=== PATIENT | female | born 1985 | race Caucasian/White ===

== ENCOUNTER 2016-08-01 16:41 | Emergency (ER) | payer MEDICAID ==
[~2016-08-01] VITALS: Ht 172.7 cm; Wt 85.6 kg
[~2016-08-01 16:41] MED LIST: AZIT-14 PO; CARI350T; CARI350T PO; DARU400T2 PO; ELVI1TAB3 PO; EMTR1TAB12 PO; IBUP800T; IBUP800T PO; OXYC10TA6 PO; PERCOCET; RITO100T PO; SULF1TAB24 PO; [UNRECOGNIZED DRUG - CODE] PO
[2016-08-01 16:53] VITALS: BP 106/70
[2016-08-01] MEDS ORDERED: DIPHENHYDRAMINE 25 MG CAPSULE ONE (17:54)
[2016-08-01] MEDS ORDERED: FAMOTIDINE 20 MG TABLET ONE (17:54)
[2016-08-01] MEDS ORDERED: DIPHENHYDRAMINE 25 MG CAPSULE PO ONE (18:00)
[2016-08-01] MEDS ORDERED: FAMOTIDINE 20 MG TABLET PO ONE (18:00)
[2016-08-01] MEDS ORDERED: TRAZ100T15 PO (18:07)
[2016-08-01] MEDS ORDERED: ZOLP10TA PO (18:07)
[2016-08-01 18:41] LABS: BLOOD UREA NITROGEN 17 mg/dL (7-18)
== END 2016-08-01 18:45 | disposition home or self-care (01) ==
LOC: ED 18:30
DX: L24.9 Irritant contact dermatitis, unspecified cause (principal); G43.909 Migraine, unspecified, not intractable, without status migrainosus; Z87.440 Personal history of urinary (tract) infections; Z85.42 Personal history of malignant neoplasm of other parts of uterus; Z88.1 Allergy status to other antibiotic agents; Z88.6 Allergy status to analgesic agent; Z88.8 Allergy status to other drugs, medicaments and biological substances
CPT/HCPCS: 36415; 80048; 82040; 85025; 99284; J7512; Q0163

== ENCOUNTER 2016-08-11 23:42 | Emergency (ER) | payer MEDICAID ==
[~2016-08-11] VITALS: Ht 172.7 cm; Wt 87.8 kg
[~2016-08-11 23:42] MED LIST changes: +TRAZ100T15 PO; +ZOLP10TA PO
[2016-08-12 00:35] LABS: HEMOGLOBIN 13.8 g/dL (11.7-16.4)
[2016-08-12] MEDS ORDERED: ONDANSETRON ODT 4 MG ONE (00:42)
[2016-08-12 00:46] LABS: ASPARTATE AMINO TRANSFERASE 15 U/L (15-37); BLOOD UREA NITROGEN 18 mg/dL (7-18)
[2016-08-12] MEDS ORDERED: OXYcodone IR 5MG TABLET PO STA (00:51)
[2016-08-12] MEDS ORDERED: OXYcodone IR 5MG TABLET ONE (00:52)
[2016-08-12] MEDS ORDERED: ONDANSETRON ODT 4 MG PO ONE (01:00)
[2016-08-12 01:38] VITALS: BP 101/65
[2016-08-12] MEDS ORDERED: AZITHROMYCIN 500 MG TABLET ONE (01:57)
[2016-08-12] MEDS ORDERED: CEFTRIAXONE 250 MG ONE (01:57)
[2016-08-12] MEDS ORDERED: CEFTRIAXONE 250 MG IM ONE (02:00)
[2016-08-12] MEDS ORDERED: AZITHROMYCIN 500 MG TABLET PO ONE (02:00)
== END 2016-08-12 02:20 | disposition home or self-care (01) ==
LOC: ED 23:59
DX: N89.8 Other specified noninflammatory disorders of vagina (principal); R10.2 Pelvic and perineal pain; Z90.710 Acquired absence of both cervix and uterus; Z88.8 Allergy status to other drugs, medicaments and biological substances; Z88.6 Allergy status to analgesic agent
CPT/HCPCS: 36415; 80053; 81003; 83690; 85025; 87210; 87491; 87591; 87808; 96372; 99284; J0696; Q0162

== ENCOUNTER 2016-09-10 21:01 | Emergency (ER) | payer MEDICAID ==
[~2016-09-10] VITALS: Ht 172.7 cm; Wt 84.5 kg
[~2016-09-10 21:01] MED LIST changes: -AZIT-14 PO; +AZIT250T89 PO
[2016-09-10 21:02] VITALS: BP 110/66
== END 2016-09-10 22:43 | disposition home or self-care (01) ==
LOC: ED 22:37
DX: M54.41 Lumbago with sciatica, right side (principal); M54.16 Radiculopathy, lumbar region; S39.012A Strain of muscle, fascia and tendon of lower back, initial encounter; E66.9 Obesity, unspecified; M19.90 Unspecified osteoarthritis, unspecified site; Z85.42 Personal history of malignant neoplasm of other parts of uterus; X58.XXXA Exposure to other specified factors, initial encounter; Y93.89 Activity, other specified; Y92.89 Other specified places as the place of occurrence of the external cause; Y99.8 Other external cause status; Z90.49 Acquired absence of other specified parts of digestive tract; Z90.710 Acquired absence of both cervix and uterus
CPT/HCPCS: 99283; J7512

== ENCOUNTER 2016-09-30 22:17 | Emergency (ER) | payer MEDICAID ==
[~2016-09-30] VITALS: Ht 172.7 cm; Wt 81.9 kg
[2016-09-30] MEDS ORDERED: LORazepam 1MG TABLET PO ONE (23:30)
[2016-09-30] MEDS ORDERED: SODIUM CHLORIDE FLUSH 10ML SYR IVF ONE (23:30)
[2016-09-30] MEDS ORDERED: SODIUM CHLORIDE 0.9% 1,000ML IVBOLUS ONE (23:30)
[2016-09-30] MEDS ORDERED: LORazepam 2 MG/ML, 1ML ONE (23:49)
[2016-10-01] MEDS ORDERED: LORazepam 2 MG/ML, 1ML IM ONE
[2016-10-01 00:12] LABS: ASPARTATE AMINO TRANSFERASE 18 U/L (15-37); BLOOD UREA NITROGEN 15 mg/dL (7-18)
[2016-10-01] MEDS ORDERED: OMNIPAQUE 350 MG/ML, 100ML BOTTLE ONE (00:46)
[2016-10-01 02:06] VITALS: BP 114/71
== END 2016-10-01 02:10 | disposition home or self-care (01) ==
LOC: ED 23:59
DX: R10.33 Periumbilical pain (principal); G89.29 Other chronic pain; Z90.49 Acquired absence of other specified parts of digestive tract; Z90.710 Acquired absence of both cervix and uterus; F17.200 Nicotine dependence, unspecified, uncomplicated
CPT/HCPCS: 36415; 74177; 80053; 85025; 96360; 96361; 96372; 99285; J2060; J7030; Q9967

== ENCOUNTER 2016-12-10 17:35 | Inpatient (IN) | payer BC, MEDICAID, OTHER ==
[~2016-12-10] VITALS: Ht 172.7 cm; Wt 76.3 kg
[2016-12-10] MEDS ORDERED: SODIUM CHLORIDE 0.9% 1,000ML IVBOLUS ONE ×2 (18:00→19:30)
[2016-12-10] MEDS ORDERED: ONDANSETRON 2MG/ML, 2ML IVPush ONE (18:00)
[2016-12-10] MEDS ORDERED: SODIUM CHLORIDE FLUSH 10ML SYR IVF ONE (18:00)
[2016-12-10] MEDS ORDERED: IBUPROFEN 200 MG TABLET PO ONE (18:00)
[2016-12-10] MEDS ORDERED: ACETAMINOPHEN 650 MG SUPP PR ONE (18:00)
[2016-12-10 18:20] LABS: HEMATOCRIT 38.8 % (34.6-47.8); WHITE BLOOD COUNT 4.7 x10^3/uL (3.4-10)
[2016-12-10 18:29] LABS: ASPARTATE AMINO TRANSFERASE 13 U/L (15-37); BLOOD UREA NITROGEN 10 mg/dL (7-18)
[2016-12-10] MEDS ORDERED: CEFTRIAXONE PMX 2GM/50ML 50 ML IV STA (18:58)
[2016-12-10] MEDS ORDERED: MORPHINE SULFATE 4 MG/ML, 1ML ONE ×3 (18:59→21:23)
[2016-12-10] MEDS ORDERED: ACETAMINOPHEN 500 MG TABLET ONE (19:00)
[2016-12-10] MEDS ORDERED: ONDANSETRON 2MG/ML, 2ML ONE (19:00)
[2016-12-10] MEDS ORDERED: LORazepam 2 MG/ML, 1ML ONE (19:00)
[2016-12-10] MEDS ORDERED: IBUPROFEN 200 MG TABLET ONE (19:00)
[2016-12-10] MEDS ORDERED: LORazepam 2 MG/ML, 1ML IVPush ONE (19:00)
[2016-12-10] MEDS ORDERED: SULFAMETH./TRIMETHOPRIM DS 800MG/160MG TABLET PO ONE (19:00)
[2016-12-10] MEDS: MORPHINE SULFATE 4 MG/ML, 1ML IVPush PRN ×3 (19:06→21:25)
[2016-12-10] MEDS ORDERED: POTASSIUM CHLORIDE 10% 20 MEQ/15 ML UDC ONE (19:20)
[2016-12-10] MEDS ORDERED: CEFTRIAXONE PMX 2GM/50ML 50 ML ONE (19:21)
[2016-12-10] MEDS ORDERED: SULFAMETH./TRIMETHOPRIM DS 800MG/160MG TABLET ONE (19:21)
[2016-12-10] MEDS ORDERED: POTASSIUM CHLORIDE 20 MEQ TAB.ER.PRT PO ONE (19:30)
[2016-12-10] MEDS ORDERED: NICOTINE GUM 4 MG BC PRN (20:30)
[2016-12-10] MEDS ORDERED: morphine SULFATE 10 MG/ML, 1ML IVPush PRN (20:30)
[2016-12-10] MEDS ORDERED: LORazepam 1MG TABLET PO PRN (20:30)
[2016-12-10] MEDS ORDERED: ONDANSETRON 2MG/ML, 2ML IVPush PRN (20:30)
[2016-12-10] MEDS ORDERED: ENALAPRILAT 1.25 MG/ML, 2ML IVPush PRN (20:30)
[2016-12-10] MEDS: SODIUM CHLORIDE 0.9% 1,000 ML IV SCH (21:25)
[2016-12-11] MEDS: SODIUM CHLORIDE 0.9% 1,000 ML IV SCH ×4 (00:18→16:50)
[2016-12-11] MEDS: FLUCONAZOLE 200 MG/100 ML 100 ML IV SCH ×2 (00:19→23:47)
[2016-12-11] MEDS: ENOXAPARIN 40 MG/0.4 ML SQ SCH ×2 (00:19→23:48)
[2016-12-11 01:27] VITALS: BP 83/48
[2016-12-11] MEDS ORDERED: SODIUM CHLORIDE 0.9% 1,000ML IVBOLUS ONE ×2 (02:00→05:00)
[2016-12-11] MEDS: ZOLPIDEM 10MG TABLET PO SCH ×2 (02:30→23:58)
[2016-12-11] MEDS: TRAZODONE 50MG TABLET PO SCH ×2 (02:30→23:59)
[2016-12-11 04:15] VITALS: BP 87/48
[2016-12-11 06:46] LABS: HEMATOCRIT 30.8 % (34.6-47.8); HEMOGLOBIN 10.6 g/dL (11.7-16.4); WHITE BLOOD COUNT 2.1 x10^3/uL (3.4-10)
[2016-12-11 06:53] VITALS: BP 125/46
[2016-12-11 06:59] LABS: BLOOD UREA NITROGEN 6 mg/dL (7-18)
[2016-12-11] MEDS ORDERED: POTASSIUM CHLORIDE 20 MEQ TAB.ER.PRT PO ONE (08:00)
[2016-12-11] MEDS: TEMPLATE NON-FORMULARY MED. (Elviteg/Cobi/Emtric/Tenofo Ala (Genvoya Tablet) 1 TAB) HOMEMEDPO SCH (09:00)
[2016-12-11 11:58] VITALS: BP 101/60
[2016-12-11] MEDS ORDERED: IBUPROFEN 200 MG TABLET PO PRN (12:30)
[2016-12-11] MEDS: CEFTRIAXONE PMX 1GM/50ML 50 ML IV SCH (12:35)
[2016-12-11] MEDS: DOXYCYCLINE 100 MG in DEXTROSE 5% 250 ML IV SCH (12:35)
[2016-12-11 13:17] VITALS: BP 96/51
[2016-12-11] MEDS ORDERED: CALCIUM CARBONATE 500 MG TAB.CHEW ONE (18:47)
[2016-12-11] MEDS ORDERED: CALCIUM CARBONATE 500 MG TAB.CHEW PO PRN (19:00)
[2016-12-11 19:55] VITALS: BP 119/75
[2016-12-11] MEDS: OMEPRAZOLE 20 MG CAPSULE.DR PO SCH (23:47)
[2016-12-12 01:25] VITALS: BP 82/52
[2016-12-12] MEDS: DOXYCYCLINE 100 MG in DEXTROSE 5% 250 ML IV SCH ×2 (01:27→12:15)
[2016-12-12] MEDS: SODIUM CHLORIDE 0.9% 1,000 ML IV SCH ×2 (01:33→12:15)
[2016-12-12 07:00] VITALS: BP 110/73
[2016-12-12] MEDS: OMEPRAZOLE 20 MG CAPSULE.DR PO SCH (08:38)
[2016-12-12] MEDS: TEMPLATE NON-FORMULARY MED. (Elviteg/Cobi/Emtric/Tenofo Ala (Genvoya Tablet) 1 TAB) HOMEMEDPO SCH (09:00)
[2016-12-12] MEDS: CEFTRIAXONE PMX 1GM/50ML 50 ML IV SCH (11:34)
[2016-12-12 14:10] VITALS: BP 119/77
[2016-12-12] MEDS ORDERED: CEFD300C37 PO (16:44)
[2016-12-12] MEDS ORDERED: DOXY100T PO (16:44)
[2016-12-12] MEDS ORDERED: NYST5000 PO (18:07)
[2016-12-13 00:06] LABS: % CD 3 POS LYMPHS 59.5 % (57.5-86.2); % CD 8 POS LYMPHS 54.2 % (12.0-35.5); % CD3+/CD25+ LYMPHS 4.7 % (4.9-25.9); % CD8+/CD38+ LYMPHS 45.1 % (0.0-17.7); % CD8+HLA-DR+ LYMPH 7.6 % (0.0-4.9); ABS CD3+/CD25+ LYMPHS 19 /uL (79-535); ABS CD8+/CD38+ LYMPHS 180 /uL (0-381); ABS CD8+HLA-DR+ LYMPH 30 /uL (0-117); ABSOLUTE CD 4 HELPER 17 /uL (359-1519); HEMATOCRIT 32.5 % (34.0-46.6); HEMOGLOBIN 10.5 g/dL (11.1-15.9); IMMATURE GRANULOCYTES 1 % (.); MCHC 32.3 g/dL (31.5-35.7); MCV 93 fL (79-97); MONOCYTES 9 % (.); NEUTROPHILS 63 % (.); NEUTROPHILS (ABSOLUTE) 1.1 x10E3/uL (1.4-7.0); PLATELETS 119 x10E3/uL (150-379); RDW 13.8 % (12.3-15.4); WBC 1.7 x10E3/uL (3.4-10.8)
== END 2016-12-12 18:45 | disposition home or self-care (01) | DRG 975 ==
LOC: ED 18:52 → EDIP 18:58 → 4NOR 23:28
DX: A41.9 Sepsis, unspecified organism (principal); B20 Human immunodeficiency virus [HIV] disease; N39.0 Urinary tract infection, site not specified; J15.9 Unspecified bacterial pneumonia; B59 Pneumocystosis; B37.0 Candidal stomatitis; R65.20 Severe sepsis without septic shock; R73.9 Hyperglycemia, unspecified; E66.9 Obesity, unspecified; K57.90 Diverticulosis of intestine, part unspecified, without perforation or abscess without bleeding; M54.16 Radiculopathy, lumbar region; R56.9 Unspecified convulsions; R55 Syncope and collapse; Z20.828 Contact with and (suspected) exposure to other viral communicable diseases; E87.6 Hypokalemia; Z76.5 Malingerer [conscious simulation]; Z83.3 Family history of diabetes mellitus; Z85.41 Personal history of malignant neoplasm of cervix uteri; Z85.42 Personal history of malignant neoplasm of other parts of uterus; Z86.711 Personal history of pulmonary embolism; Z91.19 Patient's noncompliance with other medical treatment and regimen; Z90.710 Acquired absence of both cervix and uterus; Z88.6 Allergy status to analgesic agent; Z88.1 Allergy status to other antibiotic agents; Z88.5 Allergy status to narcotic agent; Z68.25 Body mass index [BMI] 25.0-25.9, adult
CPT/HCPCS: 36415; 71020; 80048; 80053; 81001; 82550; 83605; 83735; 84100; 85025; 86356; 86359; 86360; 87040; 87086; 87281; 96374; 96375; J0696; J1650; J2405; J7060; J1450; J2060; J2270; J7030

== ENCOUNTER 2017-01-16 21:09 | Emergency (ER) | payer BC, OTHER ==
[~2017-01-16] VITALS: Ht 172.7 cm; Wt 76.4 kg
[~2017-01-16 21:09] MED LIST changes: +CEFD300C37 PO; +DOXY100T PO; -EMTR1TAB12 PO; +EMTR1TAB8 PO; +IBUP-1223; +IBUP-1223 PO; -IBUP800T; -IBUP800T PO; +NYST5000 PO
[2017-01-16 21:11] VITALS: BP 106/70
== END 2017-01-16 22:23 | disposition home or self-care (01) ==
LOC: ED 21:50
DX: R10.2 Pelvic and perineal pain (principal); R10.30 Lower abdominal pain, unspecified; F17.200 Nicotine dependence, unspecified, uncomplicated; Z86.711 Personal history of pulmonary embolism; Z98.890 Other specified postprocedural states; Z88.6 Allergy status to analgesic agent; Z88.8 Allergy status to other drugs, medicaments and biological substances; Z91.018 Allergy to other foods
CPT/HCPCS: 99281

== ENCOUNTER 2017-05-31 18:43 | Emergency (ER) | payer BC ==
[~2017-05-31] VITALS: Ht 172.7 cm; Wt 82.4 kg
[~2017-05-31 18:43] MED LIST changes: +SULF1TAB23 PO
[2017-05-31] MEDS ORDERED: MORPHINE SULFATE 4 MG/ML, 1ML IVPush PRN (20:00)
[2017-05-31] MEDS ORDERED: SODIUM CHLORIDE FLUSH 10ML SYR IVF ONE (20:00)
[2017-05-31] MEDS ORDERED: METHOCARBAMOL 1,000 MG in DEXTROSE 5% 100 ML IV ONE (20:00)
[2017-05-31 20:02] LABS: MEAN CORPUSCULAR HEMOGLOBIN 32.2 pg (27.0-34.8); MEAN CORPUSCULAR VOLUME 94.7 fL (80-100); MEAN PLATELET VOLUME 8.5 fL (7.4-10.4); PLATELET COUNT 199 x10^3/uL (130-400); RED BLOOD COUNT 4.07 x10^6/uL (3.82-5.3); RED CELL DISTRIBUTION WIDTH 12.1 % (9.6-15.2)
[2017-05-31 20:11] LABS: ALANINE AMINOTRANSFERASE 22 U/L (12-78); ALBUMIN 3.6 g/dL (3.4-5.0); ANION GAP 7 mmol/L (5-15); CALCIUM 7.9 mg/dL (8.5-10.1); CHLORIDE 111 mmol/L (98-107); CREATININE 0.86 mg/dL (0.55-1.02)
[2017-05-31 20:14] LABS: ALKALINE PHOSPHATASE 47 U/L (45-117); BILIRUBIN,TOTAL 0.7 mg/dL (0.2-1.0); TOTAL PROTEIN 7.7 g/dL (6.4-8.2)
[2017-05-31 20:20] LABS: BASOPHILS # (AUTO) 0.01 x10^3/uL (0-0.1); BASOPHILS % (AUTO) 0 % (0-1); EOSINOPHILS # (AUTO) 0.13 x10^3/uL (0-0.4); EOSINOPHILS % (AUTO) 5 % (1-7); LYMPHOCYTES # (AUTO) 0.65 x10^3/uL (1-3.4); LYMPHOCYTES % (AUTO) 26 % (22-44); MD SCAN; MONOCYTES # (AUTO) 0.16 x10^3/uL (0.2-0.8); MONOCYTES % (AUTO) 6 % (2-9); NEUTROPHILS # (AUTO) 1.55 x10^3/uL (1.8-6.8); NEUTROPHILS % (AUTO) 62 % (42-75)
[2017-05-31 20:21] LABS: HCT (SEDRATE) 38.6 % (34.6-47.8)
[2017-05-31] MEDS ORDERED: MORPHINE SULFATE 4 MG/ML, 1ML ONE (20:26)
[2017-05-31 21:18] LABS: CULTURE INDICATED? YES; MICROSCOPIC INDICATED
[2017-05-31 21:45] VITALS: BP 117/63
== END 2017-05-31 22:10 | disposition home or self-care (01) ==
LOC: ED 19:28
DX: M54.41 Lumbago with sciatica, right side (principal); N30.90 Cystitis, unspecified without hematuria; R20.2 Paresthesia of skin; Z86.711 Personal history of pulmonary embolism; Z90.49 Acquired absence of other specified parts of digestive tract
CPT/HCPCS: 36415; 72131; 80053; 81001; 84703; 85025; 85651; 87086; 96365; 96375; 99285; J2800; 87077

== ENCOUNTER 2017-07-01 23:54 | Emergency (ER) | payer BC ==
[~2017-07-01] VITALS: Ht 172.7 cm; Wt 80.7 kg
[2017-07-01 23:59] VITALS: BP 110/73
[2017-07-02] MEDS ORDERED: FAMOTIDINE 20 MG/2 ML IVPush ONE (00:30)
[2017-07-02] MEDS ORDERED: SODIUM CHLORIDE FLUSH 10ML SYR IVF ONE (00:30)
[2017-07-02] MEDS ORDERED: SODIUM CHLORIDE 0.9% 1,000ML IVBOLUS ONE (00:30)
[2017-07-02] MEDS ORDERED: PROCHLORPERAZINE 5 MG/ML, 2ML IVPush ONE (00:30)
[2017-07-02] MEDS ORDERED: DIPHENHYDRAMINE 50 MG/ML, 1ML IVPush ONE (00:30)
[2017-07-02 00:45] LABS: BASOPHILS # (AUTO) 0.01 x10^3/uL (0-0.1); BASOPHILS % (AUTO) 0 % (0-1); EOSINOPHILS # (AUTO) 0.09 x10^3/uL (0-0.4); EOSINOPHILS % (AUTO) 3 % (1-7); LYMPHOCYTES # (AUTO) 0.39 x10^3/uL (1-3.4); LYMPHOCYTES % (AUTO) 13 % (22-44); MD NO; MEAN CORPUSCULAR HEMOGLOBIN 31.7 pg (27.0-34.8); MEAN CORPUSCULAR HGB CONC 34.4 g/dL (32.4-35.8); MEAN CORPUSCULAR VOLUME 92.1 fL (80-100); MEAN PLATELET VOLUME 8.8 fL (7.4-10.4); MONOCYTES # (AUTO) 0.17 x10^3/uL (0.2-0.8); MONOCYTES % (AUTO) 6 % (2-9); NEUTROPHILS # (AUTO) 2.32 x10^3/uL (1.8-6.8); NEUTROPHILS % (AUTO) 78 % (42-75); PLATELET COUNT 142 x10^3/uL (130-400); RED BLOOD COUNT 4.19 x10^6/uL (3.82-5.3); RED CELL DISTRIBUTION WIDTH 11.3 % (9.6-15.2)
[2017-07-02] MEDS ORDERED: FAMOTIDINE 20 MG/2 ML ONE (00:51)
[2017-07-02] MEDS ORDERED: PROCHLORPERAZINE 5 MG/ML, 2ML ONE (00:51)
[2017-07-02] MEDS ORDERED: DIPHENHYDRAMINE 50 MG/ML, 1ML ONE (00:51)
[2017-07-02] MEDS ORDERED: LORazepam 1MG TABLET PO ONE (01:30)
== END 2017-07-02 02:17 | disposition other institution (70) ==
LOC: ED 23:59
DX: L50.9 Urticaria, unspecified (principal); R51 Headache; G89.29 Other chronic pain; N83.209 Unspecified ovarian cyst, unspecified side
CPT/HCPCS: 36415; 85025; 99285

== ENCOUNTER 2017-09-22 18:17 | Emergency (ER) | payer BC ==
[~2017-09-22] VITALS: Ht 172.7 cm; Wt 76.7 kg
[2017-09-22] MEDS ORDERED: SODIUM CHLORIDE 0.9% 1,000ML IVBOLUS ONE ×2 (19:00→22:30)
[2017-09-22] MEDS ORDERED: ONDANSETRON ODT 4 MG PO ONE (19:00)
[2017-09-22] MEDS ORDERED: ANTIBIOTIC (19:12)
[2017-09-22] MEDS ORDERED: ONDANSETRON ODT 4 MG ONE (19:23)
[2017-09-22] MEDS ORDERED: MORPHINE SULFATE 4 MG/ML, 1ML ONE ×3 (19:23→22:03)
[2017-09-22] MEDS: MORPHINE SULFATE 4 MG/ML, 1ML IVPush PRN ×2 (19:26→21:04)
[2017-09-22 19:41] LABS: BASOPHILS # (AUTO) 0.04 x10^3/uL (0-0.1); BASOPHILS % (AUTO) 1 % (0-1); EOSINOPHILS # (AUTO) 0.22 x10^3/uL (0-0.4); EOSINOPHILS % (AUTO) 5 % (1-7); LYMPHOCYTES # (AUTO) 0.69 x10^3/uL (1-3.4); LYMPHOCYTES % (AUTO) 16 % (22-44); MD NO; MEAN CORPUSCULAR HEMOGLOBIN 30.9 pg (27.0-34.8); MEAN CORPUSCULAR VOLUME 90.9 fL (80-100); MEAN PLATELET VOLUME 8.7 fL (7.4-10.4); MONOCYTES # (AUTO) 0.22 x10^3/uL (0.2-0.8); MONOCYTES % (AUTO) 5 % (2-9); NEUTROPHILS # (AUTO) 3.02 x10^3/uL (1.8-6.8); NEUTROPHILS % (AUTO) 72 % (42-75); PLATELET COUNT 226 x10^3/uL (130-400); RED BLOOD COUNT 4.36 x10^6/uL (3.82-5.3); RED CELL DISTRIBUTION WIDTH 14.9 % (9.6-15.2)
[2017-09-22 19:44] LABS: INTERNATIONAL NORMALIZED RATIO 1.01 (0.93-1.1); PROTHROMBIN TIME 10.5 Seconds (9.6-11.5)
[2017-09-22 19:54] LABS: ALANINE AMINOTRANSFERASE 20 U/L (12-78); ANION GAP 10 mmol/L (5-15); CALCIUM 9.6 mg/dL (8.5-10.1); CHLORIDE 110 mmol/L (98-107); CREATININE 0.93 mg/dL (0.55-1.02)
[2017-09-22 19:57] LABS: ALKALINE PHOSPHATASE 47 U/L (45-117); BILIRUBIN,TOTAL 0.6 mg/dL (0.2-1.0)
[2017-09-22] MEDS ORDERED: MIDAZOLAM 1 MG/ML, 2ML ONE ×2 (19:59→21:29)
[2017-09-22] MEDS ORDERED: MIDAZOLAM 1 MG/ML, 2ML IVPush ONE ×3 (20:00→21:30)
[2017-09-22] MEDS: SODIUM CHLORIDE 0.9% 1,000 ML IV SCH ×2 (20:41→20:43)
[2017-09-22 20:48] LABS: MICROSCOPIC AUTO
[2017-09-22 20:53] LABS: CULTURE INDICATED? YES
[2017-09-22 20:57] LABS: AMPHETAMINE SCREEN, URINE Negative (Negative); BARBITURATE SCREEN, URINE Negative (Negative); BENZODIAZEPINE SCREEN, URINE Positive (Negative); CANNABINOID SCREEN, URINE Negative (Negative); COCAINE SCREEN, URINE Negative (Negative); METHADONE SCREEN, URINE Negative (Negative); OPIATE SCREEN, URINE Positive (Negative)
[2017-09-22] MEDS ORDERED: MORPHINE SULFATE 4 MG/ML, 1ML IVPush ONE (22:00)
[2017-09-22 22:15] LABS: GLUCOSE, CSF 46 mg/dL (40-80); TOTAL PROTEIN,CSF 32 mg/dL (15-45)
[2017-09-22 22:29] VITALS: BP 97/52
== END 2017-09-22 22:32 | disposition home or self-care (01) ==
LOC: ED 19:17
DX: B34.9 Viral infection, unspecified (principal)
CPT/HCPCS: 36415; 62270; 70450; 71045; 80053; 80307; 81001; 82945; 83605; 84145; 84157; 85025; 85610; 87040; 87070; 87077; 87086; 87205; 87252; 87536; 87899; 89051; 96361; 96374; 96375; 96376; 99285; J2250; J7030; Q0162; 87186

== ENCOUNTER 2017-09-23 18:16 | Emergency (ER) | payer BC ==
[~2017-09-23] VITALS: Ht 172.7 cm; Wt 78.7 kg
[~2017-09-23 18:16] MED LIST changes: +ANTIBIOTIC
[2017-09-23] MEDS ORDERED: MORPHINE SULFATE 4 MG/ML, 1ML IVPush PRN (20:00)
[2017-09-23] MEDS ORDERED: LORazepam 2 MG/ML, 1ML IVPush ONE (20:00)
[2017-09-23] MEDS ORDERED: METOCLOPRAMIDE 5 MG/ML, 2ML IVPush ONE (20:00)
[2017-09-23] MEDS ORDERED: SODIUM CHLORIDE 0.9% 1,000ML IVBOLUS ONE (20:00)
[2017-09-23] MEDS ORDERED: SODIUM CHLORIDE FLUSH 10ML SYR IVF ONE (20:00)
[2017-09-23] MEDS ORDERED: MORPHINE SULFATE 4 MG/ML, 1ML ONE (20:05)
[2017-09-23] MEDS ORDERED: METOCLOPRAMIDE 5 MG/ML, 2ML ONE (20:05)
[2017-09-23] MEDS ORDERED: LORazepam 2 MG/ML, 1ML ONE (20:06)
[2017-09-23 22:24] VITALS: BP 112/64
== END 2017-09-23 22:27 | disposition home or self-care (01) ==
LOC: ED 22:03
DX: G97.1 Other reaction to spinal and lumbar puncture (principal); Y84.4 Aspiration of fluid as the cause of abnormal reaction of the patient, or of later complication, without mention of misadventure at the time of the procedure; Y92.89 Other specified places as the place of occurrence of the external cause
CPT/HCPCS: 96374; 96375; 99284; J2060; J2765; J7030

== ENCOUNTER 2017-10-04 19:15 | Emergency (ER) | payer BC ==
[~2017-10-04] VITALS: Ht 172.7 cm; Wt 76.8 kg
[2017-10-04 19:17] VITALS: BP 106/71
[2017-10-04] MEDS ORDERED: OMNIPAQUE 350 MG/ML, 100ML BOTTLE ONE (19:39)
[2017-10-04] MEDS ORDERED: MORPHINE SULFATE 4 MG/ML, 1ML ONE ×2 (19:56→21:37)
[2017-10-04] MEDS ORDERED: SODIUM CHLORIDE FLUSH 10ML SYR IVF ONE (20:00)
[2017-10-04] MEDS: MORPHINE SULFATE 4 MG/ML, 1ML IVPush PRN ×2 (20:04→21:40)
[2017-10-04] MEDS ORDERED: ZOLP10TA PO (20:09)
[2017-10-04 20:16] LABS: MEAN CORPUSCULAR HEMOGLOBIN 30.9 pg (27.0-34.8); MEAN CORPUSCULAR HGB CONC 33.9 g/dL (32.4-35.8); MEAN CORPUSCULAR VOLUME 91.1 fL (80-100); MEAN PLATELET VOLUME 8.1 fL (7.4-10.4); PLATELET COUNT 234 x10^3/uL (130-400); RED BLOOD COUNT 4.09 x10^6/uL (3.82-5.3); RED CELL DISTRIBUTION WIDTH 14.7 % (9.6-15.2)
[2017-10-04 20:25] LABS: ALANINE AMINOTRANSFERASE 27 U/L (12-78); ALBUMIN 3.6 g/dL (3.4-5.0); ANION GAP 7 mmol/L (5-15); CALCIUM 8.6 mg/dL (8.5-10.1); CHLORIDE 106 mmol/L (98-107); CREATININE 0.79 mg/dL (0.55-1.02)
[2017-10-04 20:27] LABS: ALKALINE PHOSPHATASE 53 U/L (45-117); BILIRUBIN,TOTAL 0.4 mg/dL (0.2-1.0); TOTAL PROTEIN 7.7 g/dL (6.4-8.2)
[2017-10-04 20:37] LABS: BASOPHILS # (AUTO) 0.01 x10^3/uL (0-0.1); BASOPHILS % (AUTO) 0 % (0-1); EOSINOPHILS # (AUTO) 0.16 x10^3/uL (0-0.4); EOSINOPHILS % (AUTO) 6 % (1-7); LYMPHOCYTES # (AUTO) 0.45 x10^3/uL (1-3.4); LYMPHOCYTES % (AUTO) 16 % (22-44); MD SCAN; MONOCYTES # (AUTO) 0.17 x10^3/uL (0.2-0.8); MONOCYTES % (AUTO) 6 % (2-9); NEUTROPHILS # (AUTO) 2.09 x10^3/uL (1.8-6.8); NEUTROPHILS % (AUTO) 73 % (42-75)
[2017-10-04 21:13] LABS: MICROSCOPIC NOT IND
[2017-10-04 21:15] LABS: CULTURE INDICATED? NO
== END 2017-10-04 22:04 | disposition home or self-care (01) ==
LOC: ED 19:46
DX: G89.18 Other acute postprocedural pain (principal); R10.30 Lower abdominal pain, unspecified; R93.8 Abnormal findings on diagnostic imaging of other specified body structures; M19.90 Unspecified osteoarthritis, unspecified site; Z86.711 Personal history of pulmonary embolism; Z85.42 Personal history of malignant neoplasm of other parts of uterus; Z90.49 Acquired absence of other specified parts of digestive tract; Z90.710 Acquired absence of both cervix and uterus; Z87.891 Personal history of nicotine dependence
CPT/HCPCS: 36415; 74177; 80053; 81003; 85025; 96374; 96376; 99285; Q9967

== ENCOUNTER 2017-11-15 20:08 | Emergency (ER) | payer BC ==
[~2017-11-15] VITALS: Ht 172.7 cm; Wt 76.1 kg
[2017-11-15 20:09] VITALS: BP 102/65
[2017-11-15 20:59] LABS: MEAN CORPUSCULAR HEMOGLOBIN 31.6 pg (27.0-34.8); MEAN CORPUSCULAR HGB CONC 34.4 g/dL (32.4-35.8); MEAN CORPUSCULAR VOLUME 91.7 fL (80-100); MEAN PLATELET VOLUME 8.5 fL (7.4-10.4); PLATELET COUNT 223 x10^3/uL (130-400); RED BLOOD COUNT 3.95 x10^6/uL (3.82-5.3); RED CELL DISTRIBUTION WIDTH 14.2 % (9.6-15.2)
[2017-11-15] MEDS ORDERED: SODIUM CHLORIDE FLUSH 10ML SYR IVF ONE (21:00)
[2017-11-15 21:11] LABS: ALANINE AMINOTRANSFERASE 19 U/L (12-78); ALBUMIN 3.8 g/dL (3.4-5.0); ANION GAP 7 mmol/L (5-15); CALCIUM 8.4 mg/dL (8.5-10.1); CHLORIDE 113 mmol/L (98-107); CREATININE 0.72 mg/dL (0.55-1.02)
[2017-11-15 21:14] LABS: ALKALINE PHOSPHATASE 46 U/L (45-117); BILIRUBIN,TOTAL 0.7 mg/dL (0.2-1.0); TOTAL PROTEIN 7.5 g/dL (6.4-8.2)
[2017-11-15 21:16] LABS: BASOPHILS # (AUTO) 0.01 x10^3/uL (0-0.1); BASOPHILS % (AUTO) 1 % (0-1); EOSINOPHILS % (AUTO) 4 % (1-7); LYMPHOCYTES # (AUTO) 0.76 x10^3/uL (1-3.4); LYMPHOCYTES % (AUTO) 32 % (22-44); MD MORPH REVIEW ONLY; MONOCYTES # (AUTO) 0.22 x10^3/uL (0.2-0.8); MONOCYTES % (AUTO) 9 % (2-9); NEUTROPHILS # (AUTO) 1.32 x10^3/uL (1.8-6.8); NEUTROPHILS % (AUTO) 55 % (42-75)
[2017-11-15 21:17] LABS: ANISOCYTOSIS 1+; OVALOCYTES 1+
[2017-11-15 21:20] LABS: <PLATELET ESTIMATE> ADEQUATE
[2017-11-15 21:21] LABS: <PLT MORPHOLOGY> NORMAL PLT MORPH
== END 2017-11-15 22:04 | disposition home or self-care (01) ==
LOC: ED 20:26
DX: Z48.01 Encounter for change or removal of surgical wound dressing (principal); R68.83 Chills (without fever); R11.0 Nausea; B20 Human immunodeficiency virus [HIV] disease; G43.909 Migraine, unspecified, not intractable, without status migrainosus; M19.90 Unspecified osteoarthritis, unspecified site; E66.9 Obesity, unspecified; N80.9 Endometriosis, unspecified; Z85.42 Personal history of malignant neoplasm of other parts of uterus; Z86.711 Personal history of pulmonary embolism
CPT/HCPCS: 36415; 80053; 83605; 85025; 87040; 99284

== ENCOUNTER 2017-12-24 19:51 | Emergency (ER) | payer BC ==
[~2017-12-24] VITALS: Ht 172.7 cm; Wt 78.0 kg
[~2017-12-24 19:51] MED LIST changes: +TRAZ-137 PO; -TRAZ100T15 PO
[2017-12-24 20:12] VITALS: BP 110/74
[2017-12-24] MEDS ORDERED: FAMOTIDINE 20 MG TABLET ONE (20:52)
[2017-12-24] MEDS ORDERED: DIPHENHYDRAMINE 25 MG CAPSULE ONE (20:52)
[2017-12-24] MEDS ORDERED: HYDROcodone/APAP 5/325 TABLET ONE (20:52)
[2017-12-24] MEDS ORDERED: FAMOTIDINE 20 MG TABLET PO ONE (21:00)
[2017-12-24] MEDS ORDERED: HYDROcodone/APAP 5/325 TABLET PO ONE (21:00)
[2017-12-24] MEDS ORDERED: DIPHENHYDRAMINE 25 MG CAPSULE PO ONE (21:00)
[2017-12-24] MEDS ORDERED: OXYcodone 5 MG/5 ML ORAL.SOL UDC PO PRN (21:00)
[2017-12-24] MEDS ORDERED: OXYcodone 5 MG/5 ML ORAL.SOL UDC ONE (21:17)
== END 2017-12-24 22:03 | disposition home or self-care (01) ==
LOC: ED 21:31
DX: T63.301A Toxic effect of unspecified spider venom, accidental (unintentional), initial encounter (principal); G43.909 Migraine, unspecified, not intractable, without status migrainosus; F17.200 Nicotine dependence, unspecified, uncomplicated; Z88.8 Allergy status to other drugs, medicaments and biological substances; Z88.1 Allergy status to other antibiotic agents; Y92.9 Unspecified place or not applicable
CPT/HCPCS: 99284; Q0163

== ENCOUNTER 2018-01-18 00:11 | Emergency (ER) | payer BC ==
[~2018-01-18] VITALS: Ht 172.7 cm; Wt 78.0 kg
[2018-01-18] MEDS ORDERED: SODIUM CHLORIDE 0.9% 1,000ML IVBOLUS ONE (00:30)
[2018-01-18 00:43] LABS: BASOPHILS # (AUTO) 0.01 x10^3/uL (0-0.1); BASOPHILS % (AUTO) 0 % (0-1); EOSINOPHILS # (AUTO) 0.17 x10^3/uL (0-0.4); EOSINOPHILS % (AUTO) 6 % (1-7); LYMPHOCYTES # (AUTO) 0.61 x10^3/uL (1-3.4); LYMPHOCYTES % (AUTO) 23 % (22-44); MD NO; MEAN CORPUSCULAR HEMOGLOBIN 31.9 pg (27.0-34.8); MEAN CORPUSCULAR HGB CONC 35.2 g/dL (32.4-35.8); MEAN CORPUSCULAR VOLUME 90.6 fL (80-100); MEAN PLATELET VOLUME 8.7 fL (7.4-10.4); MONOCYTES # (AUTO) 0.19 x10^3/uL (0.2-0.8); MONOCYTES % (AUTO) 7 % (2-9); NEUTROPHILS # (AUTO) 1.68 x10^3/uL (1.8-6.8); NEUTROPHILS % (AUTO) 63 % (42-75); PLATELET COUNT 141 x10^3/uL (130-400); RED BLOOD COUNT 3.85 x10^6/uL (3.82-5.3); RED CELL DISTRIBUTION WIDTH 12.3 % (9.6-15.2)
[2018-01-18 00:52] LABS: ALANINE AMINOTRANSFERASE 20 U/L (12-78); ALBUMIN 3.5 g/dL (3.4-5.0); ANION GAP 6 mmol/L (5-15); CHLORIDE 110 mmol/L (98-107); CREATININE 0.77 mg/dL (0.55-1.02)
[2018-01-18] MEDS ORDERED: MORPHINE SULFATE 4 MG/ML, 1ML ONE ×2 (00:52→01:56)
[2018-01-18 00:57] LABS: ALKALINE PHOSPHATASE 50 U/L (45-117); BILIRUBIN,TOTAL 0.6 mg/dL (0.2-1.0); TOTAL PROTEIN 7.2 g/dL (6.4-8.2)
[2018-01-18 01:41] LABS: CULTURE INDICATED? YES; MICROSCOPIC INDICATED
[2018-01-18] MEDS ORDERED: OMNIPAQUE 350 MG/ML, 100ML BOTTLE ONE (01:48)
[2018-01-18] MEDS: MORPHINE SULFATE 4 MG/ML, 1ML IVPush PRN ×2 (01:51→02:12)
[2018-01-18 02:33] VITALS: BP 101/59
== END 2018-01-18 03:02 | disposition home or self-care (01) ==
LOC: ED 00:51
DX: R10.31 Right lower quadrant pain (principal); R10.11 Right upper quadrant pain; R11.0 Nausea; Z21 Asymptomatic human immunodeficiency virus [HIV] infection status; Z87.891 Personal history of nicotine dependence; Z90.49 Acquired absence of other specified parts of digestive tract; Z90.710 Acquired absence of both cervix and uterus
CPT/HCPCS: 36415; 74177; 80053; 81001; 83690; 84703; 85025; 87077; 87086; 96374; 99285; J7030; Q9967; 87186

== ENCOUNTER 2018-01-25 12:04 | Emergency (ER) | payer BC ==
[~2018-01-25] VITALS: Ht 172.7 cm; Wt 75.5 kg
[2018-01-25 13:00] LABS: MEAN CORPUSCULAR HEMOGLOBIN 31.7 pg (27.0-34.8); MEAN CORPUSCULAR HGB CONC 34.5 g/dL (32.4-35.8); MEAN CORPUSCULAR VOLUME 91.7 fL (80-100); MEAN PLATELET VOLUME 9.2 fL (7.4-10.4); PLATELET COUNT 147 x10^3/uL (130-400); RED BLOOD COUNT 4.28 x10^6/uL (3.82-5.3); RED CELL DISTRIBUTION WIDTH 12.3 % (9.6-15.2)
[2018-01-25] MEDS ORDERED: FLUCONAZOLE 100 MG TABLET PO ONE (13:00)
[2018-01-25 13:07] LABS: ALANINE AMINOTRANSFERASE 23 U/L (12-78); ALBUMIN 3.8 g/dL (3.4-5.0); ANION GAP 9 mmol/L (5-15); CALCIUM 8.5 mg/dL (8.5-10.1); CHLORIDE 112 mmol/L (98-107); CREATININE 0.71 mg/dL (0.55-1.02); PROTHROMBIN TIME 10.4 Seconds (9.6-11.5)
[2018-01-25 13:10] LABS: ALKALINE PHOSPHATASE 51 U/L (45-117); BILIRUBIN,TOTAL 0.9 mg/dL (0.2-1.0); TOTAL PROTEIN 7.9 g/dL (6.4-8.2)
[2018-01-25 13:10] LABS: MICROSCOPIC AUTO
[2018-01-25 13:11] LABS: CULTURE INDICATED? YES
[2018-01-25] MEDS ORDERED: FLUCONAZOLE 100 MG TABLET ONE (13:36)
[2018-01-25 14:07] LABS: BASOPHILS # (AUTO) 0.01 x10^3/uL (0-0.1); BASOPHILS % (AUTO) 0 % (0-1); EOSINOPHILS # (AUTO) 0.12 x10^3/uL (0-0.4); EOSINOPHILS % (AUTO) 5 % (1-7); LYMPHOCYTES # (AUTO) 0.33 x10^3/uL (1-3.4); LYMPHOCYTES % (AUTO) 12 % (22-44); MD SCAN; MONOCYTES # (AUTO) 0.15 x10^3/uL (0.2-0.8); MONOCYTES % (AUTO) 6 % (2-9); NEUTROPHILS # (AUTO) 2.05 x10^3/uL (1.8-6.8); NEUTROPHILS % (AUTO) 77 % (42-75)
[2018-01-25] MEDS ORDERED: LIDOCAINE-MPF 2%, 2ML ONE (14:10)
[2018-01-25] MEDS ORDERED: CEFTRIAXONE 1,000 MG ONE (14:10)
[2018-01-25 14:22] VITALS: BP 128/87
[2018-01-25] MEDS ORDERED: CEFTRIAXONE 1,000 MG IM ONE (14:30)
== END 2018-01-25 14:56 | disposition home or self-care (01) ==
LOC: ED 13:41
DX: N30.00 Acute cystitis without hematuria (principal); Z21 Asymptomatic human immunodeficiency virus [HIV] infection status
CPT/HCPCS: 36415; 80053; 81001; 83605; 85025; 85610; 85730; 87040; 87077; 87086; 87186; 96372; 99284; J0696

== ENCOUNTER 2018-05-12 16:25 | Emergency (ER) | payer BC ==
[~2018-05-12] VITALS: Ht 172.7 cm; Wt 76.5 kg
[2018-05-12 16:40] VITALS: BP 102/65
--- NOTE | 2018-05-12 17:04 | NUR ---
TO JOVON FROM LOBBY. MARITO.
[2018-05-12 17:31] LABS: MICROSCOPIC INDICATED
[2018-05-12 17:32] LABS: CULTURE INDICATED? YES
[2018-05-12] MEDS ORDERED: DIAZEPAM 5 MG TABLET ONE (17:32)
--- NOTE | 2018-05-12 17:59 | NUR ---
CENTRAL CONTACTED FOR FOAM PILLOW
[2018-05-12] MEDS ORDERED: DIAZEPAM 5 MG TABLET PO ONE (18:00)
[2018-05-12] MEDS ORDERED: HYDROmorphone 2 MG/ML, 1ML ONE (18:04)
--- NOTE | 2018-05-12 18:25 | NUR ---
PT GIVEN ORTHO PILLOW, ABLE TO AMB TO DC
[2018-05-12] MEDS ORDERED: HYDROmorphone 2 MG/ML, 1ML IM ONE (18:30)
== END 2018-05-12 18:28 | disposition home or self-care (01) ==
LOC: ED 18:15
DX: S32.2XXA Fracture of coccyx, initial encounter for closed fracture (principal); Z90.49 Acquired absence of other specified parts of digestive tract; Z90.710 Acquired absence of both cervix and uterus; Z21 Asymptomatic human immunodeficiency virus [HIV] infection status; Z88.6 Allergy status to analgesic agent; Z86.19 Personal history of other infectious and parasitic diseases; Z86.711 Personal history of pulmonary embolism; X58.XXXA Exposure to other specified factors, initial encounter; Y93.89 Activity, other specified; Y92.89 Other specified places as the place of occurrence of the external cause; Y99.8 Other external cause status
CPT/HCPCS: 72110; 72220; 81001; 87077; 87086; 87186; 96372; 99284; J1170

== ENCOUNTER 2018-06-09 18:44 | Emergency (ER) | payer BC ==
[~2018-06-09] VITALS: Ht 172.7 cm; Wt 75.4 kg
[2018-06-09 19:00] VITALS: BP 105/67
[2018-06-09] MEDS ORDERED: HYDROcodone/APAP 5/325 TABLET ONE (19:18)
[2018-06-09] MEDS ORDERED: OXYcodone IR 5MG TABLET ONE (19:23)
[2018-06-09] MEDS ORDERED: OXYcodone IR 5MG TABLET PO ONE (19:30)
[2018-06-09] MEDS ORDERED: HYDROcodone/APAP 5/325 TABLET PO ONE (19:30)
== END 2018-06-09 21:37 | disposition home or self-care (01) ==
LOC: ED 19:21
DX: M25.572 Pain in left ankle and joints of left foot (principal); Z90.49 Acquired absence of other specified parts of digestive tract; Z90.710 Acquired absence of both cervix and uterus; Z72.9 Problem related to lifestyle, unspecified; G43.909 Migraine, unspecified, not intractable, without status migrainosus; Z98.84 Bariatric surgery status
CPT/HCPCS: 99284

== ENCOUNTER 2018-07-28 22:32 | Emergency (ER) | payer BC ==
[~2018-07-28] VITALS: Ht 172.7 cm; Wt 79.6 kg
--- NOTE | 2018-07-28 22:49 | NUR ---
PT REPORTS A 4 DAY EVANS AND OTC MEDS NOT WORKING. per triage note
[2018-07-28] MEDS ORDERED: HYDROmorphone 1 MG/ML, 1ML AMP IM STA (23:11)
[2018-07-28] MEDS ORDERED: DIAZEPAM 5 MG TABLET ONE (23:17)
[2018-07-28] MEDS ORDERED: HYDROmorphone 1 MG/ML, 1ML AMP ONE (23:17)
[2018-07-28] MEDS ORDERED: DIAZEPAM 5 MG TABLET PO ONE (23:30)
[2018-07-29 00:08] VITALS: BP 99/72
--- NOTE | 2018-07-29 00:08 | NUR ---
given dc instruction pt understood
== END 2018-07-29 00:10 | disposition home or self-care (01) ==
LOC: ED 23:20
DX: G44.211 Episodic tension-type headache, intractable (principal); Z72.9 Problem related to lifestyle, unspecified
CPT/HCPCS: 96372; 99283; J1170

== ENCOUNTER 2018-07-29 18:34 | Emergency (ER) | payer BC ==
[~2018-07-29] VITALS: Ht 172.7 cm; Wt 77.6 kg
--- NOTE | 2018-07-29 18:58 | NUR ---
PT PRESENTS TO ED AFTER TAKING SHOWER AND FINDING BUMP BETWEEN BUTCRACK, PT WAS IN ED LAST NIGHT FOR BACK PAIN.
--- NOTE | 2018-07-29 19:13 | NUR ---
REPORT TO FABIAN LOFTON
[2018-07-29] MEDS ORDERED: DIAZEPAM 5 MG TABLET ONE (20:03)
[2018-07-29] MEDS ORDERED: HYDROmorphone 1 MG/ML, 1ML AMP ONE (20:04)
[2018-07-29] MEDS ORDERED: HYDROmorphone 2 MG/ML, 1ML IM ONE (20:30)
[2018-07-29] MEDS ORDERED: DIAZEPAM 5 MG TABLET PO ONE (20:30)
[2018-07-29 20:34] VITALS: BP 115/75
== END 2018-07-29 20:36 | disposition home or self-care (01) ==
LOC: ED 20:30
DX: B02.9 Zoster without complications (principal); F17.200 Nicotine dependence, unspecified, uncomplicated; Z21 Asymptomatic human immunodeficiency virus [HIV] infection status
CPT/HCPCS: 96372; 99283; J1170

== ENCOUNTER 2018-11-12 20:23 | Emergency (ER) | payer BC ==
[~2018-11-12] VITALS: Ht 172.7 cm; Wt 73.3 kg
[2018-11-12 20:25] VITALS: BP 134/88
[2018-11-12 21:23] LABS: MEAN CORPUSCULAR HEMOGLOBIN 31.8 pg (27.0-34.8); MEAN CORPUSCULAR HGB CONC 34.2 g/dL (32.4-35.8); MEAN PLATELET VOLUME 8.7 fL (7.4-10.4); PLATELET COUNT 181 x10^3/uL (130-400); RED BLOOD COUNT 4.31 x10^6/uL (3.82-5.3); RED CELL DISTRIBUTION WIDTH 12.8 % (9.6-15.2)
--- NOTE | 2018-11-12 21:23 | NUR ---
PT RESTING COMFORTABLY IN [place] AT THIS TIME; LEANDRO. PT PROVIDED WARM BLANKET AND UA AND DENIES ANY OTHER NEEDS AT THIS TIME.
[2018-11-12 21:36] LABS: ALANINE AMINOTRANSFERASE 16 U/L (12-78); ALBUMIN 3.9 g/dL (3.4-5.0); ANION GAP 9 mmol/L (5-15); CALCIUM 8.4 mg/dL (8.5-10.1); CHLORIDE 115 mmol/L (98-107); CREATININE 0.78 mg/dL (0.55-1.02)
[2018-11-12 21:39] LABS: ALKALINE PHOSPHATASE 48 U/L (45-117); BILIRUBIN,TOTAL 0.6 mg/dL (0.2-1.0); TOTAL PROTEIN 7.5 g/dL (6.4-8.2)
[2018-11-12 22:04] LABS: BASOPHILS % (AUTO) 0 % (0-1); EOSINOPHILS # (AUTO) 0.13 x10^3/uL (0-0.4); EOSINOPHILS % (AUTO) 6 % (1-7); LYMPHOCYTES # (AUTO) 0.41 x10^3/uL (1-3.4); LYMPHOCYTES % (AUTO) 20 % (22-44); MD SCAN; MONOCYTES # (AUTO) 0.11 x10^3/uL (0.2-0.8); MONOCYTES % (AUTO) 6 % (2-9); NEUTROPHILS # (AUTO) 1.41 x10^3/uL (1.8-6.8); NEUTROPHILS % (AUTO) 68 % (42-75)
--- NOTE | 2018-11-12 22:30 | NUR ---
PT BECAME AGITATED AND CONFRONTATIONAL STATING "I DEMAND TO SPEAK TO A DRPino RIGHT NOW". DR. KILGORE AND EDDA BUTT NOTIFIED. PT AT TO DISCUSS POC WITH PT. PT REQUESTING TO BE D/C WITHOUT ANY INTERVENTIONS STATING "I WOULD RATHER JUST GO TO [place]". D/C PAPERWORK GIVEN TO PT PER REQUEST. PT DENIES ANY OTHER NEEDS PERTAINING TO THIS VISIT AND AMBULATES TO REGISTRATION DESK WITH STEADY GAIT FOR D/C HOME WITH FRIENDS.
== END 2018-11-12 22:45 | disposition home or self-care (01) ==
LOC: ED 21:21
DX: S39.012A Strain of muscle, fascia and tendon of lower back, initial encounter (principal); G43.909 Migraine, unspecified, not intractable, without status migrainosus; E66.9 Obesity, unspecified; Z90.49 Acquired absence of other specified parts of digestive tract; Z90.710 Acquired absence of both cervix and uterus; X58.XXXA Exposure to other specified factors, initial encounter; Y93.89 Activity, other specified; Y92.89 Other specified places as the place of occurrence of the external cause; Y99.8 Other external cause status
CPT/HCPCS: 36415; 80053; 83690; 85025; 99283

== ENCOUNTER 2019-05-02 01:32 | Emergency (ER) | payer BC ==
[~2019-05-02] VITALS: Ht 172.7 cm; Wt 77.2 kg
[2019-05-02 01:35] VITALS: BP 113/78
[2019-05-02] MEDS ORDERED: NAPR-685 PO (01:56)
[2019-05-02] MEDS ORDERED: GABA300C10 PO (01:57)
--- NOTE | 2019-05-02 01:57 | NUR ---
THIS IS A 33 YO FEMALE COMING IN FOR MIDLINE LOW BACK PAIN X1WEEK PROGRESSIVELY GETTING WORSE. PATIENT HAS N/V WITH PAIN, DENIES DIARRHEA OR ABD PAIN. PAIN WORSENS WITH MOVEMENT, CURRENTLY 10/10 PAIN. DENIES PAIN/TENDERNESS LOCATED OVER KIDNEYS. PATIENT STATES "IT CAME ON SUDDENLY LAST THURSDAY AND HAS GOTTEN WORSE, I'VE SEEN MY PRIMARY CARE DOCTOR AND HE GAVE ME NAPROXEN, BUT IT HASN'T WORKED". PATIENT HAS HX OF AIDS, UTERINE CANCER CURRENTLY IN REMISSION, AND E COLI. VSS, NAD, URINE CUP PROVIDED, PATIENT STATES SHE IS UNABLE TO GO AT THIS TIME. PLACED ON CONTINUOUS SPO2 AT 100%, CYCLE BP Q1HR. CALL LIGHT IN REACH, DENIES FURTHER NEEDS.
[2019-05-02] MEDS ORDERED: METHOCARBAMOL 750 MG TABLET PO ONE (02:00)
[2019-05-02] MEDS ORDERED: METHOCARBAMOL 750 MG TABLET ONE (02:02)
[2019-05-02] MEDS ORDERED: METH750T87 PO (02:04)
--- NOTE | 2019-05-02 02:05 | NUR ---
NON-ADMIN REASON: THIS MEDICATION AND TOOK IT AT HOME. MD NOTIFIED
[2019-05-02] MEDS ORDERED: DIAZEPAM 5 MG TABLET ONE (02:17)
[2019-05-02] MEDS ORDERED: DIAZEPAM 5 MG TABLET PO ONE (02:30)
--- NOTE | 2019-05-02 02:48 | NUR ---
Medications offered to patient which she denied. She states, "I've taken muscle relaxers and nerve blockers and those don't work." Patient was offered other meds such as steroids or a lidocaine patch. Patient states, "steroids would kill me" and denies either of those. Patient states she is allergic to OTC meds such as acetaminophen. Patient states, "I just want to leave. Why would I stay here and be cold and in pain when I can be home and warm and in pain." Patient agreed to wait for AMA to be signed. Presented AMA to patient and patient refuses to sign. She states, "I'm not going against medical advice. I'm here to be seen but you aren't doing anything for me." Patient left without AMA signature. Patient advised to come back if there are any changes or to call 911.
== END 2019-05-02 02:53 | disposition left against medical advice (07) ==
LOC: ED 02:00
DX: G89.29 Other chronic pain (principal); M54.5 Low back pain; G43.909 Migraine, unspecified, not intractable, without status migrainosus; B20 Human immunodeficiency virus [HIV] disease; M19.90 Unspecified osteoarthritis, unspecified site; F17.210 Nicotine dependence, cigarettes, uncomplicated; Z90.49 Acquired absence of other specified parts of digestive tract; Z90.710 Acquired absence of both cervix and uterus; Z72.9 Problem related to lifestyle, unspecified; Z87.440 Personal history of urinary (tract) infections; Z87.42 Personal history of other diseases of the female genital tract
CPT/HCPCS: 72110; 99283

== ENCOUNTER 2019-07-18 15:36 | Emergency (ER) | payer BC ==
[~2019-07-18] VITALS: Ht 172.7 cm; Wt 74.8 kg
[~2019-07-18 15:36] MED LIST changes: +GABA300C10 PO; +METH750T87 PO; +NAPR-685 PO; -TRAZ-137 PO; +TRAZ-175 PO
[2019-07-18 16:02] VITALS: BP 145/106
[2019-07-18] MEDS ORDERED: ZOLP10TA PO (16:15)
[2019-07-18] MEDS ORDERED: LORA-445 PO (16:15)
[2019-07-18] MEDS ORDERED: OXYC10TA6 PO (16:15)
--- NOTE | 2019-07-18 16:22 | NUR ---
PT INFORMED BY PROVIDER THAT NARCOTICS WOULD NOT BE USED TO CONTROL HER PAIN. PT ANGRY ABOUT DECISION, STATES SHE'S NOT GOING TO STAY. Addendum: 07/18/19 at 1623 by KAREN PT ABLE TO SIT UPRIGHT FROM SUPINE POSITION W/OUT DIFFICULTY
--- NOTE | 2019-07-18 16:24 | NUR ---
PT LEFT W/OUT DISCHARGE DOCUMENTS.
== END 2019-07-18 16:26 ==
LOC: ED 16:15
DX: S39.012A Strain of muscle, fascia and tendon of lower back, initial encounter (principal); Z90.49 Acquired absence of other specified parts of digestive tract; Z90.710 Acquired absence of both cervix and uterus; Z21 Asymptomatic human immunodeficiency virus [HIV] infection status; X58.XXXA Exposure to other specified factors, initial encounter; Y93.89 Activity, other specified; Y92.89 Other specified places as the place of occurrence of the external cause; Y99.8 Other external cause status
CPT/HCPCS: 99283

== ENCOUNTER 2019-09-03 21:58 | Emergency (ER) | payer BC ==
[~2019-09-03] VITALS: Ht 172.7 cm; Wt 74.0 kg
[~2019-09-03 21:58] MED LIST changes: +LORA-445 PO
[2019-09-03 22:02] VITALS: BP 135/69
[2019-09-03] MEDS ORDERED: HYDROmorphone 1 MG/ML, 1ML INJ IM STA (22:19)
[2019-09-03] MEDS ORDERED: HYDROmorphone 2 MG/ML, 1ML ONE (22:32)
== END 2019-09-03 22:47 | disposition home or self-care (01) ==
LOC: ED 22:18
DX: J02.0 Streptococcal pharyngitis (principal); F17.210 Nicotine dependence, cigarettes, uncomplicated; Z85.42 Personal history of malignant neoplasm of other parts of uterus
CPT/HCPCS: 96372; 99283; J1170

== ENCOUNTER 2019-09-18 17:03 | Emergency (ER) | payer BC ==
[~2019-09-18] VITALS: Ht 172.7 cm; Wt 72.0 kg
[2019-09-18 17:13] VITALS: BP 103/68
[2019-09-18] MEDS ORDERED: LORazepam 1MG TABLET ONE (18:00)
[2019-09-18] MEDS ORDERED: HYDROmorphone 1 MG/ML, 1ML INJ IM ONE (18:00)
[2019-09-18] MEDS ORDERED: LORazepam 1MG TABLET PO ONE (18:00)
[2019-09-18] MEDS ORDERED: HYDROmorphone 1 MG/ML, 1ML INJ ONE (18:00)
== END 2019-09-18 18:40 | disposition home or self-care (01) ==
LOC: ED 17:43
DX: G89.29 Other chronic pain (principal); M54.5 Low back pain; M54.6 Pain in thoracic spine; F17.200 Nicotine dependence, unspecified, uncomplicated; Z90.49 Acquired absence of other specified parts of digestive tract; Z90.710 Acquired absence of both cervix and uterus
CPT/HCPCS: 96372; 99283; J1170

== ENCOUNTER 2019-10-11 20:08 | Inpatient (IN) | payer BC ==
[~2019-10-11] VITALS: Ht 172.7 cm; Wt 72.8 kg
--- NOTE | 2019-10-11 20:37 | NUR ---
PT HAS SPINAL TAP X10 DAYS AGO FOR MENINGITIS R/O, TESTING NEGATIVE. PT REPORTS EVANS SINCE THEN, HAD BLOOD PATCH X8 DAYS AGO. REPORTS NO RELEIF FROM PAIN, PT REPORTS CURRENT EVANS ON LEFT SIDE OF FACE WRAPPING TO NECK, NO PAIN WITH PALPATION. PT REPORTS PAIN WITH PALP ALONG LUMBAR SPINE, NO SWELLING OR MUSCLE GUARDING NTOED. PT REPORTS "THEY DIDNT KNOW WHAT THEY WERE DOING WITH THE BLOOD PATCH, THEY WERE PRACTICING WITH A FAKE LICENCE". PT REPORTS N/V, DENIES PHOTOSENSITIVITY. PT REPROTS "I HAVE TO BE SEDATED FOR MRI, AND THEY LAUGHED IN MY FACE AND DIDNT DO ANYTHING FOR ME" WHEN REPORTING LAST VISIT TO ANOTHER ED YESTERDAY. VSS, MONTIORING APPLIED, CALL LIGHT WITHIN REACH, ALL SAFETY MEASURES IN PLACE.
[2019-10-11] MEDS ORDERED: HYDROmorphone 1 MG/ML, 1ML INJ IVPush PRN (21:00)
[2019-10-11] MEDS ORDERED: ONDANSETRON 2MG/ML, 2ML IVPush ONE (21:00)
[2019-10-11] MEDS ORDERED: SODIUM CHLORIDE FLUSH 10ML SYR IVF ONE (21:00)
[2019-10-11] MEDS ORDERED: HYDROmorphone 1 MG/ML, 1ML INJ ONE (21:02)
[2019-10-11] MEDS ORDERED: ONDANSETRON 2MG/ML, 2ML ONE (21:02)
[2019-10-11 21:29] LABS: MEAN CORPUSCULAR HEMOGLOBIN 31.5 pg (27.0-34.8); MEAN CORPUSCULAR VOLUME 92.7 fL (80-100); MEAN PLATELET VOLUME 8.6 fL (7.4-10.4); PLATELET COUNT 190 x10^3/uL (130-400); RED CELL DISTRIBUTION WIDTH 16.1 % (9.6-15.2)
[2019-10-11 21:33] LABS: ALBUMIN 3.5 g/dL (3.4-5.0); ANION GAP 6 mmol/L (5-15); CALCIUM 7.9 mg/dL (8.5-10.1); CHLORIDE 115 mmol/L (98-107)
[2019-10-11 21:47] LABS: BASOPHILS # (AUTO) 0.01 x10^3/uL (0-0.1); BASOPHILS % (AUTO) 1 % (0-1); EOSINOPHILS # (AUTO) 0.18 x10^3/uL (0-0.4); EOSINOPHILS % (AUTO) 12 % (1-7); LYMPHOCYTES # (AUTO) 0.27 x10^3/uL (1-3.4); LYMPHOCYTES % (AUTO) 18 % (22-44); MD SCAN; MONOCYTES # (AUTO) 0.12 x10^3/uL (0.2-0.8); MONOCYTES % (AUTO) 8 % (2-9); NEUTROPHILS # (AUTO) 0.93 x10^3/uL (1.8-6.8); NEUTROPHILS % (AUTO) 62 % (42-75)
[2019-10-11 22:06] LABS: HCT (SEDRATE) 32.4 % (34.6-47.8)
[2019-10-11] MEDS ORDERED: TEMA30CA PO (23:42)
[2019-10-12] MEDS ORDERED: hydrALAzine 20 MG/ML, 1ML IVPush PRN
[2019-10-12] MEDS ORDERED: LORazepam 0.5MG TABLET PO PRN
[2019-10-12] MEDS ORDERED: LIDODERM 5% PATCH TD PRN
[2019-10-12] MEDS ORDERED: ZOLPIDEM 10MG TABLET PO SCH
--- NOTE | 2019-10-12 00:08 | NUR ---
PT UP FOR TRANSPORT. PT REFUSING TO BE TRANSPORTED TO ADMIT BED UNTIL SHE GETS THE PAIN MEDS SHE IS CURRENTLY DEMANDING. TECH INFORMED MD WHOM STATES NO MORE MEDS IN THE ED.
[2019-10-12 00:20] VITALS: BP 102/68
[2019-10-12] MEDS: NICOTINE 7 MG/24 HR PATCH.TD24 TD SCH (00:36)
[2019-10-12] MEDS: LACTATED RINGERS 1,000 ML IV SCH ×3 (00:37→18:17)
[2019-10-12] MEDS: HYDROmorphone 2 MG/ML, 1ML IVPush PRN ×5 (00:37→16:09)
[2019-10-12] MEDS: TEMAZEPAM 30 MG CAPSULE PO PRN ×2 (02:11→20:20)
[2019-10-12] MEDS ORDERED: LORazepam 2 MG/ML, 1ML IVPush PRN (06:00)
[2019-10-12 06:42] LABS: ANION GAP 5 mmol/L (5-15); CALCIUM 7.8 mg/dL (8.5-10.1); CHLORIDE 113 mmol/L (98-107)
[2019-10-12 06:44] LABS: MEAN CORPUSCULAR HEMOGLOBIN 31.5 pg (27.0-34.8); MEAN CORPUSCULAR HGB CONC 33.6 g/dL (32.4-35.8); MEAN CORPUSCULAR VOLUME 93.7 fL (80-100); MEAN PLATELET VOLUME 8.7 fL (7.4-10.4); PLATELET COUNT 155 x10^3/uL (130-400); RED BLOOD COUNT 3.44 x10^6/uL (3.82-5.3); RED CELL DISTRIBUTION WIDTH 15.7 % (9.6-15.2)
[2019-10-12 07:54] LABS: MD SCAN
[2019-10-12 07:55] LABS: BASOPHILS # (AUTO) 0.01 x10^3/uL (0-0.1); BASOPHILS % (AUTO) 1 % (0-1); EOSINOPHILS # (AUTO) 0.23 x10^3/uL (0-0.4); EOSINOPHILS % (AUTO) 14 % (1-7); LYMPHOCYTES # (AUTO) 0.33 x10^3/uL (1-3.4); LYMPHOCYTES % (AUTO) 21 % (22-44); MONOCYTES # (AUTO) 0.19 x10^3/uL (0.2-0.8); MONOCYTES % (AUTO) 12 % (2-9); NEUTROPHILS # (AUTO) 0.82 x10^3/uL (1.8-6.8); NEUTROPHILS % (AUTO) 52 % (42-75)
[2019-10-12] MEDS: GABAPENTIN 300 MG CAPSULE PO SCH ×3 (08:16→09:00)
[2019-10-12] MEDS: SULFAMETH./TRIMETHOPRIM SS 400MG/80MG TABLET PO SCH (08:16)
[2019-10-12] MEDS: METHOCARBAMOL 750 MG TABLET PO SCH ×3 (08:16→09:00)
[2019-10-12] MEDS ORDERED: METOCLOPRAMIDE 5 MG/ML, 2ML IVPush PRN ×2 (08:30→14:30)
[2019-10-12] MEDS ORDERED: MAGNESIUM SULFATE PMX 2GM/50ML 50 ML IV ONE (08:30)
[2019-10-12 08:37] VITALS: BP 106/72
[2019-10-12] MEDS: ONDANSETRON 2MG/ML, 2ML IVPush PRN ×2 (09:14→18:35)
[2019-10-12] MEDS: OXYcodone IR 5MG TABLET PO PRN (18:16)
[2019-10-12 18:44] VITALS: BP 105/68
[2019-10-13 00:14] VITALS: BP 109/70
[2019-10-13] MEDS: NICOTINE 7 MG/24 HR PATCH.TD24 TD SCH (00:16)
[2019-10-13] MEDS: OXYcodone IR 5MG TABLET PO PRN ×5 (00:16→20:46)
[2019-10-13] MEDS: DIPHENHYDRAMINE 50 MG/ML, 1ML IVPush PRN ×5 (00:24→20:46)
[2019-10-13 06:59] LABS: ANION GAP 7 mmol/L (5-15); CHLORIDE 112 mmol/L (98-107); CREATININE 0.66 mg/dL (0.55-1.02)
[2019-10-13 07:15] LABS: MEAN CORPUSCULAR HEMOGLOBIN 31.6 pg (27.0-34.8); MEAN CORPUSCULAR HGB CONC 33.8 g/dL (32.4-35.8); MEAN CORPUSCULAR VOLUME 93.7 fL (80-100); PLATELET COUNT 157 x10^3/uL (130-400); RED CELL DISTRIBUTION WIDTH 15.9 % (9.6-15.2)
[2019-10-13 07:26] VITALS: BP 109/75
[2019-10-13 07:40] LABS: BASOPHILS % (AUTO) 0 % (0-1); EOSINOPHILS # (AUTO) 0.14 x10^3/uL (0-0.4); EOSINOPHILS % (AUTO) 10 % (1-7); LYMPHOCYTES # (AUTO) 0.27 x10^3/uL (1-3.4); LYMPHOCYTES % (AUTO) 18 % (22-44); MD SCAN; MONOCYTES # (AUTO) 0.12 x10^3/uL (0.2-0.8); MONOCYTES % (AUTO) 8 % (2-9); NEUTROPHILS # (AUTO) 0.93 x10^3/uL (1.8-6.8); NEUTROPHILS % (AUTO) 64 % (42-75)
[2019-10-13] MEDS ORDERED: POTASSIUM CHLORIDE 20 MEQ TAB.ER.PRT PO ONE (08:30)
[2019-10-13] MEDS: GABAPENTIN 300 MG CAPSULE PO SCH (08:55)
[2019-10-13] MEDS: SULFAMETH./TRIMETHOPRIM SS 400MG/80MG TABLET PO SCH (08:55)
[2019-10-13] MEDS: METHOCARBAMOL 750 MG TABLET PO SCH (08:55)
[2019-10-13] MEDS ORDERED: NAPR500T8 PO (10:16)
[2019-10-13] MEDS ORDERED: [UNRECOGNIZED DRUG - OTHER] PO (10:16)
[2019-10-13] MEDS ORDERED: LORA-446 PO (10:16)
[2019-10-13] MEDS: LORazepam 1MG TABLET PO PRN (10:49)
[2019-10-13] MEDS ORDERED: MIDAZOLAM 1 MG/ML, 5ML ONE ×2 (11:27)
[2019-10-13] MEDS ORDERED: FENTANYL PF 100 MCG/2ML ONE (11:27)
[2019-10-13] MEDS ORDERED: GADOTERATE 7.5 MMOL/15 ML SYR ONE (12:20)
[2019-10-13 12:56] VITALS: BP 96/62
[2019-10-13] MEDS: TEMAZEPAM 30 MG CAPSULE PO PRN (19:57)
[2019-10-13 19:59] VITALS: BP 109/74
[2019-10-14] MEDS: DIPHENHYDRAMINE 50 MG/ML, 1ML IVPush PRN ×2 (00:45→06:00)
[2019-10-14] MEDS: OXYcodone IR 5MG TABLET PO PRN ×2 (00:45→06:00)
[2019-10-14] MEDS: NICOTINE 7 MG/24 HR PATCH.TD24 TD SCH (00:45)
[2019-10-14] MEDS: LORazepam 1MG TABLET PO PRN (02:49)
[2019-10-14 02:52] VITALS: BP 108/69
[2019-10-14] MEDS ORDERED: MAGNESIUM SULFATE IV ONE (07:00)
[2019-10-14] MEDS ORDERED: SODIUM CHLORIDE 0.9% IV ONE (07:00)
[2019-10-14] MEDS ORDERED: VALPROATE SODIUM 500 MG in DEXTROSE 5% 100 ML IV SCH (07:00)
[2019-10-14 07:23] LABS: MICROSCOPIC AUTO
[2019-10-14 07:46] LABS: ANION GAP 10 mmol/L (5-15); CALCIUM 8.5 mg/dL (8.5-10.1); CHLORIDE 109 mmol/L (98-107); CREATININE 0.61 mg/dL (0.55-1.02)
[2019-10-14 07:58] LABS: MEAN CORPUSCULAR HEMOGLOBIN 32.1 pg (27.0-34.8); MEAN CORPUSCULAR HGB CONC 33.8 g/dL (32.4-35.8); MEAN CORPUSCULAR VOLUME 94.9 fL (80-100); MEAN PLATELET VOLUME 8.1 fL (7.4-10.4); PLATELET COUNT 175 x10^3/uL (130-400); RED BLOOD COUNT 3.73 x10^6/uL (3.82-5.3); RED CELL DISTRIBUTION WIDTH 16.3 % (9.6-15.2)
[2019-10-14] MEDS ORDERED: FLUCONAZOLE 50 MG TABLET PO ONE (08:00)
[2019-10-14] MEDS ORDERED: CYCLOBENZAPRINE 10 MG TABLET PO ONE (08:00)
[2019-10-14] MEDS ORDERED: CEFDINIR 300 MG CAPSULE PO SCH (08:00)
[2019-10-14] MEDS ORDERED: LORazepam 1MG TABLET PO PRN (08:00)
[2019-10-14] MEDS ORDERED: OXYcodone IR 5MG TABLET PO PRN (08:00)
[2019-10-14 08:03] VITALS: BP 120/81
[2019-10-14] MEDS ORDERED: CLOT45CR5 VG (08:08)
[2019-10-14] MEDS ORDERED: NYST1000 PO (08:08)
[2019-10-14] MEDS ORDERED: LIDO700A20 TD (08:08)
[2019-10-14] MEDS ORDERED: CEFD300C37 PO (08:08)
[2019-10-14] MEDS ORDERED: FLUCONAZOLE 100 MG TABLET ONE (08:25)
[2019-10-14] MEDS ORDERED: HYDROmorphone 1 MG/ML, 1ML INJ IM ONE (08:30)
[2019-10-14 08:55] LABS: MD YES
[2019-10-14] MEDS: SULFAMETH./TRIMETHOPRIM SS 400MG/80MG TABLET PO SCH (09:00)
[2019-10-14] MEDS: METHOCARBAMOL 750 MG TABLET PO SCH (09:00)
[2019-10-14] MEDS: GABAPENTIN 300 MG CAPSULE PO SCH (09:00)
[2019-10-14 09:02] LABS: ANISOCYTOSIS 1+; BAND#(MANUAL) 0.02 x10^3/uL; BANDS%(MANUAL) 1 % (0-7); EOS#(MANUAL) 0.15 x10^3/uL (0.0-0.4); EOS% (MANUAL) 8 % (1-7); LYMPH#(MANUAL) 0.19 x10^3/uL (1-3.4); LYMPHS% (MANUAL) 10 % (22-44); MONOS#(MANUAL) 0.13 x10^3/uL (0.3-2.7); MONOS% (MANUAL) 7 % (2-9); SEG#(MANUAL) 1.41 x10^3/uL (1.8-6.8); SEGS% (MANUAL) 74 % (42-75)
[2019-10-14 09:03] LABS: <PLATELET ESTIMATE> ADEQUATE; <PLT MORPHOLOGY> NORMAL PLT MORPH; OVALOCYTES 1+
[2019-10-14] MEDS ORDERED: HYDROmorphone 2 MG/ML, 1ML ONE (10:03)
[2019-10-14] MEDS ORDERED: HYDROmorphone 1 MG/ML, 1ML INJ IV ONE (10:30)
[2019-10-14] MEDS ORDERED: NYSTATIN 500,000 UNITS/5 ML UDC PO SCH (11:00)
[2019-10-14] MEDS ORDERED: CLOTRIMAZOLE VAGINAL CRM 1%, 45GM VG SCH (21:00)
== END 2019-10-14 10:45 | disposition home or self-care (01) | DRG 103 ==
LOC: ED 20:57 → OBSVTOIN 22:57 → EDIP 22:57 → INTOOBSV 22:57 → 3N 10-12 00:19 → DCLOUNGE 10-14 10:35
PROVIDERS: ADMIT Family Medicine; ATTEND Family Medicine
DX: R51 Headache (principal); B20 Human immunodeficiency virus [HIV] disease; B37.0 Candidal stomatitis; N39.0 Urinary tract infection, site not specified; B37.3 Candidiasis of vulva and vagina; D64.9 Anemia, unspecified; D70.9 Neutropenia, unspecified; E87.6 Hypokalemia; F17.210 Nicotine dependence, cigarettes, uncomplicated; F41.0 Panic disorder [episodic paroxysmal anxiety]; G89.29 Other chronic pain; F51.04 Psychophysiologic insomnia; Z85.41 Personal history of malignant neoplasm of cervix uteri; Z85.42 Personal history of malignant neoplasm of other parts of uterus; Z86.711 Personal history of pulmonary embolism; Z90.710 Acquired absence of both cervix and uterus; Z90.49 Acquired absence of other specified parts of digestive tract; Z98.84 Bariatric surgery status; Z80.3 Family history of malignant neoplasm of breast; Z80.8 Family history of malignant neoplasm of other organs or systems; Z91.018 Allergy to other foods; Z88.6 Allergy status to analgesic agent
CPT/HCPCS: 36415; 70450; 70553; 80048; 81001; 82040; 83605; 83735; 84100; 84703; 85025; 85651; 87040; 87077; 87086; 96374; 96375; 96376; 99156; 99157; 99285; G0378; J1170; J2250; J2405; J3010; A9575; J1200; J2060; J7120

== ENCOUNTER 2019-11-25 14:48 | Emergency (ER) | payer BC ==
[~2019-11-25] VITALS: Ht 172.7 cm; Wt 68.0 kg
[~2019-11-25 14:48] MED LIST changes: +CLOT45CR5 VG; +LIDO700A20 TD; +LORA-446 PO; +NAPR500T8 PO; +NYST1000 PO; +TEMA30CA PO; +[UNRECOGNIZED DRUG - OTHER] PO
[2019-11-25 15:02] VITALS: BP 99/63
--- NOTE | 2019-11-25 15:16 | NUR ---
PT AMBULATED TO RESTROOM WITH STEADY GAIT TO PROVIDE URINE SAMPLE. UA ORDERED PER PROTOCOL AND SENT TO LAB.
[2019-11-25] MEDS ORDERED: CEFTRIAXONE PMX 1GM/50ML 50 ML ONE (15:42)
[2019-11-25 15:44] LABS: MICROSCOPIC NOT IND
[2019-11-25 15:56] LABS: BASOPHILS # (AUTO) 0.01 x10^3/uL (0-0.1); BASOPHILS % (AUTO) 0 % (0-1); EOSINOPHILS # (AUTO) 0.16 x10^3/uL (0-0.4); EOSINOPHILS % (AUTO) 5 % (1-7); LYMPHOCYTES # (AUTO) 0.16 x10^3/uL (1-3.4); LYMPHOCYTES % (AUTO) 5 % (22-44); MD NO; MEAN CORPUSCULAR HEMOGLOBIN 30.5 pg (27.0-34.8); MEAN CORPUSCULAR HGB CONC 32.3 g/dL (32.4-35.8); MEAN PLATELET VOLUME 8.6 fL (7.4-10.4); MONOCYTES # (AUTO) 0.13 x10^3/uL (0.2-0.8); MONOCYTES % (AUTO) 4 % (2-9); NEUTROPHILS # (AUTO) 2.53 x10^3/uL (1.8-6.8); NEUTROPHILS % (AUTO) 85 % (42-75); PLATELET COUNT 244 x10^3/uL (130-400); RED BLOOD COUNT 4.19 x10^6/uL (3.82-5.3); RED CELL DISTRIBUTION WIDTH 14.4 % (9.6-15.2)
[2019-11-25] MEDS ORDERED: ONDANSETRON 2MG/ML, 2ML IVPush ONE (16:00)
[2019-11-25] MEDS ORDERED: CEFTRIAXONE PMX 1GM/50ML 50 ML IV ONE (16:00)
[2019-11-25] MEDS ORDERED: SODIUM CHLORIDE FLUSH 10ML SYR IVF ONE (16:00)
[2019-11-25] MEDS ORDERED: ONDANSETRON 2MG/ML, 2ML ONE (16:00)
[2019-11-25] MEDS ORDERED: MORPHINE SULFATE 4 MG/ML, 1ML ONE ×2 (16:00→16:44)
[2019-11-25] MEDS: MORPHINE SULFATE 4 MG/ML, 1ML IVPush PRN ×2 (16:02→16:46)
[2019-11-25 16:05] LABS: ALBUMIN 4.7 g/dL (3.4-5.0); ANION GAP 9 mmol/L (5-15); CALCIUM 8.5 mg/dL (8.5-10.1); CHLORIDE 111 mmol/L (98-107)
--- NOTE | 2019-11-25 16:06 | NUR ---
COVERAGE SPECIALIST PER JUL. PT CONNECTED TO MONITORING. CALL LIGHT IN REACH.
[2019-11-25 16:07] LABS: ALANINE AMINOTRANSFERASE 20 U/L (12-78); ALKALINE PHOSPHATASE 59 U/L (45-117); BILIRUBIN,TOTAL 0.6 mg/dL (0.2-1.0); CREATININE 0.88 mg/dL (0.55-1.02); TOTAL PROTEIN 8.1 g/dL (6.4-8.2)
[2019-11-25 16:58] LABS: HCG UR SG 1.023 (1.003-1.030)
--- NOTE | 2019-11-25 17:04 | NUR ---
ALL RESULTS ARE BACK AT THIS TIME. CHART UP FOR RECHECK.
[2019-11-25] MEDS ORDERED: AZITHROMYCIN 250 MG TABLET ONE (17:37)
[2019-11-25] MEDS ORDERED: OXYcodone 5 MG/5 ML ORAL.SOL UDC PO PRN (18:00)
[2019-11-25 18:01] LABS: CLUE CELLS PRESENT (NONE SEEN); WET PREP WBCS FEW (FEW)
[2019-11-25] MEDS ORDERED: OXYcodone IR 5MG TABLET ONE (18:10)
== END 2019-11-25 18:36 | disposition home or self-care (01) ==
LOC: ED 18:15
DX: N76.0 Acute vaginitis (principal); M54.5 Low back pain; M54.6 Pain in thoracic spine; Z88.6 Allergy status to analgesic agent; Z90.710 Acquired absence of both cervix and uterus
CPT/HCPCS: 36415; 80053; 81003; 81025; 85025; 87210; 87491; 87591; 87808; 96365; 96375; 96376; 99284; J0696; J2270; J2405

== ENCOUNTER 2019-12-20 18:50 | Emergency (ER) | payer BC ==
[~2019-12-20] VITALS: Ht 172.7 cm; Wt 68.3 kg
[2019-12-20 18:51] VITALS: BP 138/75
--- NOTE | 2019-12-20 19:04 | NUR ---
ERP AT BEDSIDE
[2019-12-20] MEDS ORDERED: TEMAZEPAM 30 MG CAPSULE PO ONE (19:30)
--- NOTE | 2019-12-20 19:39 | NUR ---
PATIENT MEDICATED PER EMAR. PATIENT TAKES MED AT HOME, IN WAITING ROOM TO TAKE PATIENT HOME
== END 2019-12-20 19:43 | disposition home or self-care (01) ==
LOC: ED 19:25
DX: G47.00 Insomnia, unspecified (principal); F41.1 Generalized anxiety disorder; F17.210 Nicotine dependence, cigarettes, uncomplicated; G43.909 Migraine, unspecified, not intractable, without status migrainosus; Z76.0 Encounter for issue of repeat prescription; Z90.710 Acquired absence of both cervix and uterus; Z90.49 Acquired absence of other specified parts of digestive tract; Z85.42 Personal history of malignant neoplasm of other parts of uterus
CPT/HCPCS: 99283; 99406

== ENCOUNTER 2020-02-12 21:01 | Emergency (ER) | payer BC ==
[~2020-02-12] VITALS: Ht 172.7 cm; Wt 67.4 kg
[2020-02-12 21:04] VITALS: BP 119/84
--- NOTE | 2020-02-12 21:21 | NUR ---
assessment made. chart up for MD to see. patient c/o body aches x 1 week. states she is not taking her HIV medication. states " feels like my virus ( HIV ) is coming back ".
--- NOTE | 2020-02-12 21:30 | NUR ---
PA at bedside.
--- NOTE | 2020-02-12 21:45 | NUR ---
calibration laboratory technician at bedside.
--- NOTE | 2020-02-12 21:55 | NUR ---
patient states that she need another provider. didnt say what happened. PA notified and talking to patient at this time.
[2020-02-12 22:01] LABS: MEAN CORPUSCULAR HEMOGLOBIN 30.5 pg (27.0-34.8); MEAN CORPUSCULAR HGB CONC 33.5 g/dL (32.4-35.8); MEAN PLATELET VOLUME 10.8 fL (7.4-10.4); PLATELET COUNT 141 x10^3/uL (130-400); RED BLOOD COUNT 3.91 x10^6/uL (3.82-5.3)
--- NOTE | 2020-02-12 22:02 | NUR ---
patient asking for pain medication. offered to have ibuprofen. patient refused. due to nature of patients symptoms provider asked her if she is fine to have another Covid test, patient declined.
[2020-02-12 22:11] LABS: ANION GAP 2 mmol/L (5-15); CALCIUM 8.4 mg/dL (8.5-10.1); CHLORIDE 110 mmol/L (98-107); CREATININE 0.82 mg/dL (0.55-1.02)
--- NOTE | 2020-02-12 22:18 | NUR ---
patient upset not getting pain medication.
--- NOTE | 2020-02-12 22:18 | NUR ---
patient decided to leave without waiting for lab result. discharged with instruction. verbalized understanding.
[2020-02-12 23:18] LABS: MD YES
--- NOTE | 2020-02-12 23:20 | NUR ---
lab called for critical WBC 1.7. PA aware. patient already DC'd.
[2020-02-12 23:22] LABS: <PLATELET ESTIMATE> DECREASED; ANISOCYTOSIS 1+; BAND#(MANUAL) 0.02 x10^3/uL; BANDS%(MANUAL) 1 % (0-7); BASOS#(MANUAL) 0.02 x10^3/uL (0-0.1); BASOS% (MANUAL) 1 % (0-1); EOS% (MANUAL) 6 % (1-7); LYMPH#(MANUAL) 0.31 x10^3/uL (1-3.4); LYMPHS% (MANUAL) 18 % (22-44); MONOS% (MANUAL) 6 % (2-9); OVALOCYTES 1+; SEG#(MANUAL) 1.16 x10^3/uL (1.8-6.8); SEGS% (MANUAL) 68 % (42-75)
[2020-02-12 23:23] LABS: <PLT MORPHOLOGY> NORMAL PLT MORPH
== END 2020-02-12 22:26 | disposition home or self-care (01) ==
LOC: ED 21:20
DX: M79.10 Myalgia, unspecified site (principal); R53.83 Other fatigue; Z90.49 Acquired absence of other specified parts of digestive tract; Z90.89 Acquired absence of other organs; Z88.8 Allergy status to other drugs, medicaments and biological substances; Z88.6 Allergy status to analgesic agent; Z85.42 Personal history of malignant neoplasm of other parts of uterus
CPT/HCPCS: 36415; 80048; 85025; 99283

== ENCOUNTER 2020-02-29 11:40 | Emergency (ER) | payer BC ==
[~2020-02-29] VITALS: Ht 172.7 cm; Wt 69.3 kg
[2020-02-29] MEDS ORDERED: ONDANSETRON ODT 4 MG PO ONE (12:30)
[2020-02-29] MEDS ORDERED: SODIUM CHLORIDE 0.9% 1,000ML IV ONE (12:30)
[2020-02-29] MEDS ORDERED: MORPHINE SULFATE 4 MG/ML, 1ML ONE ×2 (12:44→13:32)
[2020-02-29] MEDS ORDERED: ONDANSETRON ODT 4 MG ONE (12:44)
[2020-02-29] MEDS: MORPHINE SULFATE 4 MG/ML, 1ML IVPush PRN ×2 (12:48→13:34)
[2020-02-29 13:06] LABS: MEAN CORPUSCULAR HEMOGLOBIN 29.6 pg (27.0-34.8); MEAN CORPUSCULAR HGB CONC 32.9 g/dL (32.4-35.8); MEAN PLATELET VOLUME 8.8 fL (7.4-10.4); PLATELET COUNT 116 x10^3/uL (130-400); RED BLOOD COUNT 4.04 x10^6/uL (3.82-5.3); RED CELL DISTRIBUTION WIDTH 13.7 % (9.6-15.2)
[2020-02-29 13:16] LABS: ALBUMIN 3.8 g/dL (3.4-5.0); ANION GAP 5 mmol/L (5-15); CALCIUM 8.6 mg/dL (8.5-10.1); CHLORIDE 110 mmol/L (98-107)
[2020-02-29 13:17] LABS: CREATININE 0.69 mg/dL (0.55-1.02)
[2020-02-29 13:31] LABS: MD YES
[2020-02-29 13:36] LABS: BAND#(MANUAL) 0.01 x10^3/uL; BANDS%(MANUAL) 1 % (0-7); EOS#(MANUAL) 0.21 x10^3/uL (0.0-0.4); EOS% (MANUAL) 15 % (1-7); LYMPHS% (MANUAL) 14 % (22-44); MONOS#(MANUAL) 0.07 x10^3/uL (0.3-2.7); MONOS% (MANUAL) 5 % (2-9); SEG#(MANUAL) 0.91 x10^3/uL (1.8-6.8); SEGS% (MANUAL) 65 % (42-75)
--- NOTE | 2020-02-29 13:36 | NUR ---
PT CO OF PAIN. MEDICATED PER MAR
[2020-02-29 13:37] LABS: ANISOCYTOSIS 1+; OVALOCYTES 2+
[2020-02-29 13:38] LABS: <PLATELET ESTIMATE> DECREASED; <PLT MORPHOLOGY> NORMAL PLT MORPH
[2020-02-29] MEDS ORDERED: DIPHENHYDRAMINE 50 MG/ML, 1ML ONE (14:11)
[2020-02-29] MEDS ORDERED: DIPHENHYDRAMINE 50 MG/ML, 1ML IVPush ONE (14:30)
--- NOTE | 2020-02-29 14:43 | NUR ---
Report from vivian lizama With assessment patient reports "pain back to 02/10. I need some ivp benadryl." Provider made aware
[2020-02-29 14:46] LABS: MICROSCOPIC INDICATED
--- NOTE | 2020-02-29 14:49 | NUR ---
report to Marleen LOFTON
--- NOTE | 2020-02-29 14:53 | NUR ---
Report received from ROLLY Brown. Plan of care discussed. Patient to be discharged
[2020-02-29] MEDS ORDERED: HYDROcodone/APAP 5/325 TABLET PO ONE (15:30)
[2020-02-29 15:32] VITALS: BP 95/62
--- NOTE | 2020-02-29 15:39 | NUR ---
This RN gave patient option of getting [place] 5mg per EMAR, patient states "that has acetaminophen I can't take that, I'm allergic". FILOMENA Cummins made aware, no other medications to be offered to patient per PA orders. Patient given dischage paperwork, states "so you're not giving me any oxycodone or anything for the pain?" Patient educated that we cannot give any more narcotics, received 8mg morphine and IV benadryl prior to this RN's arrival, from previous RN. Patient states "Fine I'm willing to have an allergic r eaction to get the norco", patient educated we cannot give a medication that has a documented allergy and patient had already verbalized that allergy. Patient upset upon discharge for not getting any additional pain medications. Patient states "The other nurse was able to give me medications for pain, and you come in here and I don't get anything? You call yourself a nurse?" Patient educated about previous medications given, no other options at this time. Ambulatory with steady gait to discharge.
== END 2020-02-29 15:56 | disposition home or self-care (01) ==
LOC: ED 13:41
DX: G89.29 Other chronic pain (principal); M54.5 Low back pain; R11.0 Nausea; R50.9 Fever, unspecified; R10.9 Unspecified abdominal pain; F17.210 Nicotine dependence, cigarettes, uncomplicated; G43.909 Migraine, unspecified, not intractable, without status migrainosus; Z90.49 Acquired absence of other specified parts of digestive tract; Z85.42 Personal history of malignant neoplasm of other parts of uterus; Z90.710 Acquired absence of both cervix and uterus
CPT/HCPCS: 36415; 71045; 80048; 81001; 82040; 85025; 93005; 96361; 96374; 96375; 96376; 99285; J1200; J2270; J7030; Q0162

== ENCOUNTER 2020-03-12 21:06 | Emergency (ER) | payer SELFPAY ==
[~2020-03-12] VITALS: Ht 172.7 cm; Wt 64.0 kg
[2020-03-12 21:16] VITALS: BP 116/62
[2020-03-12] MEDS ORDERED: PROCHLORPERAZINE 5 MG/ML, 2ML IVPush ONE (21:30)
[2020-03-12] MEDS ORDERED: MORPHINE SULFATE 4 MG/ML, 1ML IVPush PRN (21:30)
[2020-03-12] MEDS ORDERED: SODIUM CHLORIDE FLUSH 10ML SYR IVF ONE (21:30)
[2020-03-12] MEDS ORDERED: DIAZEPAM 5 MG/ML, 2ML IVPush ONE (21:30)
[2020-03-12] MEDS ORDERED: DIPHENHYDRAMINE 50 MG/ML, 1ML IVPush ONE (21:30)
[2020-03-12] MEDS ORDERED: SODIUM CHLORIDE 0.9% 1,000ML IVBOLUS ONE (21:30)
--- NOTE | 2020-03-12 21:30 | NUR ---
EDUCATED PATIENT ON WHAT SHE IS EXPERIENCING IS A SPINAL HEADACHE. PT VERBALIZED UNDERSTANDING AND THAT PAIN MEDICATION WOULD ONLY BE A TEMPORY FIX. VSS. PT LAYING IN BED TEXTING ON PHONE.
[2020-03-12] MEDS ORDERED: ONDANSETRON ODT 8 MG ONE (21:45)
--- NOTE | 2020-03-12 21:46 | NUR ---
PT REQUESTING ODT NIA. DR KILGORE AWARE. VERBAL ORDER GIVEN. READ BACK AND VERIFIED.
--- NOTE | 2020-03-12 21:47 | NUR ---
PT REPORTS SHE ONLY WANTS MORPHINE AND ZOFRAN AT THIS TIME.
[2020-03-12] MEDS ORDERED: MORPHINE SULFATE 4 MG/ML, 1ML ONE (21:50)
[2020-03-12] MEDS ORDERED: ONDANSETRON ODT 4 MG PO ONE (22:00)
--- NOTE | 2020-03-12 22:46 | NUR ---
PT SLEEPING IN BED.
--- NOTE | 2020-03-12 23:22 | NUR ---
WENT IN TO DISCHARGE PT WHEN SHE STATED THAT DR. ROSAS SAID TO CALL THE UNIVERSITY RELATIONS VICE PRESIDENT DOCTOR SO THE UNIVERSITY RELATIONS VICE PRESIDENT DOCTOR COULD CALL DR. ROSAS TO GET PAIN MEDICATION FOR PT IN THE ED, SINCE SHE WAS ABOUT TO BE DISCHARGED WITHOUT ANY PAIN MEDICATION SCRIPTS. SPOKE WITH DR. ROSAS, HE SAID THAT WAS A LIE AND TO DISCHARGE HER AND TO NOT GIVE ANY MORE PAIN MEDICATION. WENT BACK IN TO SPEAK TO PT AND SHE JUMPED OUT OF BED (APPEARING TO BE IN NO FURTHER BACK OR HEAD PAIN) PULLED OFF ALL WIRES TO THE MONITOR AND STARTED CURSING AT THIS NURSE. PT STARTED THROWING WIRES TO GROUND YELLING "I DON'T WANT ANY OF YOUR FUCKING INFORMATION! YOU HAVEN'T HELPED ME AT ALL." THIS NURSE LEFT THE ROOM AND CALLED SECURITY. SECURITY ARRIVED AND ESCORTED PT OUT THE DOOR.
== END 2020-03-12 23:29 | disposition home or self-care (01) ==
LOC: ED 21:16
DX: G97.1 Other reaction to spinal and lumbar puncture (principal); M54.5 Low back pain; G89.29 Other chronic pain; F17.210 Nicotine dependence, cigarettes, uncomplicated; Z21 Asymptomatic human immunodeficiency virus [HIV] infection status
CPT/HCPCS: 96361; 96374; 99283; J2270; J7030; Q0162

== ENCOUNTER 2020-03-25 21:12 | Emergency (ER) | payer SELFPAY ==
[~2020-03-25] VITALS: Ht 172.7 cm; Wt 70.0 kg
--- NOTE | 2020-03-25 21:28 | NUR ---
ASSUMED CARE OF PATIENT. PATIENT REPORTS RIGHT SIDED ABD PAIN X4 DAYS. VS STABLE. NO ACUTE DISTRESS NOTED. PT HAS BEEN SEEN BY DR BRIONES.
[2020-03-25] MEDS ORDERED: ONDANSETRON 2MG/ML, 2ML IVPush ONE (21:30)
[2020-03-25] MEDS ORDERED: ONDANSETRON 2MG/ML, 2ML ONE (21:39)
--- NOTE | 2020-03-25 22:12 | NUR ---
TASK RN: PT TAKEN TO CT. INQUIRING CT STAFF FOR "NEW DR/ RN"
--- NOTE | 2020-03-25 22:16 | NUR ---
BREAK RN: PATIENT TO CT SCAN.
[2020-03-25 22:21] LABS: BASOPHILS % (AUTO) 2 % (0-1); EOSINOPHILS % (AUTO) 5 % (1-7); LYMPHOCYTES % (AUTO) 20 % (22-44); MEAN CORPUSCULAR HEMOGLOBIN 30.8 pg (27.0-34.8); MEAN CORPUSCULAR HGB CONC 34.1 g/dL (32.4-35.8); MEAN PLATELET VOLUME 8.2 fL (7.4-10.4); MONOCYTES % (AUTO) 8 % (2-9); NEUTROPHILS % (AUTO) 66 % (42-75); PLATELET COUNT 203 x10^3/uL (130-400); RED BLOOD COUNT 3.55 x10^6/uL (3.82-5.3); RED CELL DISTRIBUTION WIDTH 13.7 % (9.6-15.2)
[2020-03-25 22:25] LABS: ALBUMIN 3.2 g/dL (3.4-5.0); ANION GAP 7 mmol/L (5-15); CALCIUM 8.2 mg/dL (8.5-10.1); CHLORIDE 111 mmol/L (98-107)
[2020-03-25 22:27] LABS: CREATININE 0.77 mg/dL (0.55-1.02)
--- NOTE | 2020-03-25 22:27 | NUR ---
RM RN: PT BACK FROM CT SCAN.
--- NOTE | 2020-03-25 22:38 | NUR ---
PT REFUSED CT UNTIL SHE CAN HAVE PAIN MEDS. DR BRIONES AWARE. PT IS NOT ABLE TO PROVIDE A UA AT THIS TIME.
[2020-03-25 22:45] LABS: MD MORPH REVIEW ONLY
[2020-03-25 22:46] LABS: ANISOCYTOSIS 1+; OVALOCYTES 2+
[2020-03-25 22:51] LABS: <PLATELET ESTIMATE> ADEQUATE; <PLT MORPHOLOGY> NORMAL PLT MORPH; LARGE PLATELETS 1+
--- NOTE | 2020-03-25 22:52 | NUR ---
PT AGITATED AND VERBALLY AGRESSIVE. REFUING TO HAVE IV REMOVED. 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 LAZARO, ED SUP AT BEDSIDE TO REMOVE IV. SECURITY IN DOORWAY.
[2020-03-25 22:54] VITALS: BP 107/48
== END 2020-03-25 23:07 | disposition home or self-care (01) ==
LOC: ED 22:08
DX: R10.31 Right lower quadrant pain (principal); R11.0 Nausea; R50.9 Fever, unspecified; F17.210 Nicotine dependence, cigarettes, uncomplicated; Z21 Asymptomatic human immunodeficiency virus [HIV] infection status; Z90.49 Acquired absence of other specified parts of digestive tract; Z90.710 Acquired absence of both cervix and uterus
CPT/HCPCS: 36415; 80048; 82040; 85025; 96374; 99283; 99406; J2405

== ENCOUNTER 2020-04-23 21:53 | Emergency (ER) | payer SELFPAY ==
[~2020-04-23] VITALS: Ht 172.7 cm; Wt 68.9 kg
--- NOTE | 2020-04-23 23:54 | NUR ---
PT. TO ROOM FROM LOBBY AT THIS TIME.
--- NOTE | 2020-04-24 | NUR ---
PT. TO ED WITH C/O RLQ ABD PAIN X ABOUT 5 MONTHS ALONG WITH NAUSEA DAILY. PT. REPORTS CASTING MOLDER STATES "THERE IS SOMETHING VERY HARD(RLQ), BUT I DON'T KNOW WHAT IT IS". PT. STATES SHE WAS TOLD TO COME TO ED FOR US. FILOMENA VU IN TO EVAL PT. AND DISCUSS POC. REQUESTED PT. TO CHANGE INTO GOWN AND WARM BLANKETS PROVIDED. URINE SAMPLE ALSO REQUESTED AND PT. STATES UNABLE TO PROVIDE "BECAUSE I AM TOO DEHYDRATED."
[2020-04-24 00:26] VITALS: BP 122/75
--- NOTE | 2020-04-24 00:26 | NUR ---
PT. TEARFUL; REQUESTING "SOMETHING FOR THE NAUSEA AND THIS EXCRUTIATING PAIN I AM IN, IF I CAN'T GET SOMETHING SOON I AM GOING TO WALK OUT OF HERE." DISCUSSED WITH FILOMENA VU; NEW ORDERS RECEIVED.
[2020-04-24] MEDS ORDERED: ONDANSETRON ODT 4 MG ONE (00:29)
[2020-04-24] MEDS ORDERED: DICYCLOMINE 20 MG TABLET ONE (00:29)
[2020-04-24] MEDS ORDERED: ONDANSETRON ODT 4 MG PO ONE (00:30)
[2020-04-24] MEDS ORDERED: DICYCLOMINE 20 MG TABLET PO ONE (00:30)
--- NOTE | 2020-04-24 00:40 | NUR ---
PT. REFUSED PO KATHERINE, STATING "I CAN'T TAKE PILLS BECAUSE OF MY GASTRIC SLEEVE AND FULL BLOWN AIDS, MY BODY WON'T ALLOW ME TO PROCESS PILLS."
[2020-04-24 00:41] LABS: MEAN CORPUSCULAR HEMOGLOBIN 29.4 pg (27.0-34.8); MEAN CORPUSCULAR HGB CONC 33.5 g/dL (32.4-35.8); PLATELET COUNT 164 x10^3/uL (130-400); RED BLOOD COUNT 3.92 x10^6/uL (3.82-5.3); RED CELL DISTRIBUTION WIDTH 13.8 % (9.6-15.2)
[2020-04-24 00:55] LABS: ALANINE AMINOTRANSFERASE 18 U/L (12-78); ALBUMIN 3.5 g/dL (3.4-5.0); ANION GAP 3 mmol/L (5-15); CALCIUM 8.1 mg/dL (8.5-10.1); CHLORIDE 116 mmol/L (98-107)
[2020-04-24] MEDS ORDERED: DICYCLOMINE 10 MG/ML, 2ML IM ONE (01:00)
[2020-04-24] MEDS ORDERED: DICYCLOMINE 10 MG/ML, 2ML ONE (01:00)
--- NOTE | 2020-04-24 01:03 | NUR ---
THIS RN IN TO MEDICATE PT. PT. SHOUTING "I AM LEAVING BECAUSE SHE WON'T GIVE ME ANYTHING FOR THIS PAIN." EXPLAINED KATHERINE TO PT. AND PT. STATES "THERE ARE A MILLION OTHER THINGS THAT SHE COULD BE GIVING ME, MORPHINE, I CAN THINK OF A MILLION OTHER THINGS SHE COULD GIVE ME A SHOT OF IN MY BUTTCHEEK TO HELP ME." "I AM LEAVING AND WHEN SOMETHING BAD HAPPENS TO ME IT'S GOING TO BE ON HER ASS." FILOMENA VU UPDATED. NO NEW ORDERS. PT. UPDATED.
[2020-04-24 01:04] LABS: ALKALINE PHOSPHATASE 50 U/L (45-117); BILIRUBIN,TOTAL 0.3 mg/dL (0.2-1.0); CREATININE 0.72 mg/dL (0.55-1.02); TOTAL PROTEIN 7.1 g/dL (6.4-8.2)
[2020-04-24 01:16] LABS: MD YES
--- NOTE | 2020-04-24 01:18 | NUR ---
PT. CONTINUES SHOUTING TO THIS RN: "SHE IS A COWARD(ERP), SHE NEEDS TO COME IN HERE AND EXPLAIN WHY SHE ISN'T GOING TO GIVE ME ANYTHING FOR THIS PAIN." "WHAT EVEN IS HER JOB? TO SIT AROUND AND LOOK PRETTY." "I HAVE CALLED MY REHAB DIRECTOR OCCUPATIONAL THERAPIST AND YOU GUYS WILL BE HEARING FROM HIM." EXPLAINED TO PT. THAT THE US WAS ORDERED AND NEEDED TO BE DONE PRIOR TO MEDS PER ERP. PT. STATES "I AM GOING TO SIT RIGHT HERE UNTIL THAT FLASH COMES IN TO DO SOMETHING ABOUT MY PAIN." SECURITY CALLED.
--- NOTE | 2020-04-24 01:23 | NUR ---
PT. WAS ALSO STATING "WHAT IF I AM ALLERGIC TO BENTYL?, WHY CAN'T I JUST GET SOME FENTANYL AND VERSED?"
[2020-04-24 01:30] LABS: BAND#(MANUAL) 0.02 x10^3/uL; BANDS%(MANUAL) 1 % (0-7); BASOS#(MANUAL) 0.02 x10^3/uL (0-0.1); BASOS% (MANUAL) 1 % (0-1); EOS#(MANUAL) 0.07 x10^3/uL (0.0-0.4); EOS% (MANUAL) 4 % (1-7); LYMPH#(MANUAL) 0.67 x10^3/uL (1-3.4); LYMPHS% (MANUAL) 37 % (22-44); MONOS#(MANUAL) 0.14 x10^3/uL (0.3-2.7); MONOS% (MANUAL) 8 % (2-9); SEG#(MANUAL) 0.88 x10^3/uL (1.8-6.8); SEGS% (MANUAL) 49 % (42-75)
[2020-04-24 01:31] LABS: ANISOCYTOSIS 1+; OVALOCYTES 2+
[2020-04-24 01:32] LABS: <PLATELET ESTIMATE> ADEQUATE; <PLT MORPHOLOGY> NORMAL PLT MORPH
== END 2020-04-24 01:30 | disposition left against medical advice (07) ==
LOC: ED 04-24 00:04
DX: R10.31 Right lower quadrant pain (principal); R11.2 Nausea with vomiting, unspecified; F17.210 Nicotine dependence, cigarettes, uncomplicated; G43.909 Migraine, unspecified, not intractable, without status migrainosus
CPT/HCPCS: 36415; 80053; 84703; 85025; 99283; Q0162

== ENCOUNTER 2020-05-13 19:26 | Emergency (ER) | payer OTHER ==
[~2020-05-13] VITALS: Ht 172.7 cm; Wt 68.5 kg
[2020-05-13] MEDS ORDERED: ONDANSETRON ODT 4 MG PO ONE (20:00)
[2020-05-13] MEDS ORDERED: DIAZEPAM 5 MG TABLET PO ONE (20:00)
[2020-05-13] MEDS ORDERED: DIAZEPAM 5 MG TABLET ONE (20:28)
[2020-05-13] MEDS ORDERED: ONDANSETRON ODT 4 MG ONE (20:28)
--- NOTE | 2020-05-13 20:51 | NUR ---
PT REFUSING CT.
[2020-05-13 21:35] VITALS: BP 95/56
== END 2020-05-13 21:37 | disposition home or self-care (01) ==
LOC: ED 20:33
DX: S16.1XXA Strain of muscle, fascia and tendon at neck level, initial encounter (principal); S39.012A Strain of muscle, fascia and tendon of lower back, initial encounter; M51.36 Other intervertebral disc degeneration, lumbar region; Z21 Asymptomatic human immunodeficiency virus [HIV] infection status; W01.0XXA Fall on same level from slipping, tripping and stumbling without subsequent striking against object, initial encounter; Y93.89 Activity, other specified; Y92.009 Unspecified place in unspecified non-institutional (private) residence as the place of occurrence of the external cause; Y99.8 Other external cause status
CPT/HCPCS: 72110; 99283; Q0162

== ENCOUNTER 2020-06-13 13:43 | Emergency (ER) | payer OTHER ==
[~2020-06-13] VITALS: Ht 172.7 cm; Wt 66.8 kg
[2020-06-13 15:27] LABS: MEAN CORPUSCULAR HEMOGLOBIN 29.1 pg (27.0-34.8); MEAN CORPUSCULAR HGB CONC 33.7 g/dL (32.4-35.8); MEAN PLATELET VOLUME 9.5 fL (7.4-10.4); PLATELET COUNT 188 x10^3/uL (130-400); RED BLOOD COUNT 4.37 x10^6/uL (3.82-5.3); RED CELL DISTRIBUTION WIDTH 14.8 % (9.6-15.2)
[2020-06-13 15:38] LABS: ALBUMIN 4.4 g/dL (3.4-5.0); ANION GAP 6 mmol/L (5-15); CALCIUM 8.5 mg/dL (8.5-10.1); CHLORIDE 112 mmol/L (98-107); CREATININE 0.81 mg/dL (0.55-1.02)
[2020-06-13 15:41] LABS: TROPONIN I < 0.015 ng/mL (0.000-0.045)
[2020-06-13 15:56] LABS: MD YES
--- NOTE | 2020-06-13 16:02 | NUR ---
manager retirement: pt from lobby to room 17
--- NOTE | 2020-06-13 16:16 | NUR ---
PALPITATIONS/SOB & FATIGUED ECG IN TRIAGE WITH FURTHER ASSESSMENT "I HURT MY BACK IN [place] LATELY AND THE MD GAVE ME SOME BUPRENEX TO INJECT. I DID IT ONCE. COULD THIS HAVE MADE ME FEEL LIKE THIS?" VSS ON MEDICAL DEVICE ASSEMBLER
--- NOTE | 2020-06-13 16:31 | NUR ---
PLACED ON PROTECTIVE ENVIRONMENT PRECAUTIONS
--- NOTE | 2020-06-13 16:34 | NUR ---
PT COMES IN TODAY C/O EXTREME FATIGUE, SOB, GENERALIZED WEAKNESS, PALPITATIONS EVANS, N/V X4 DAYS. PT STATES SHE HAD AIDS AND HAS BEEN IN THE HOSPTIAL "MANY TIMES" FOR SEPSIS, NEUTOPENIA. MONITORS CONNECTED. VSS. CALL LIGHT W/IN REACH.
--- NOTE | 2020-06-13 16:36 | NUR ---
MD AT BEDSIDE FOR ASSESSMENT. PLAN OF CARE DISCUSSED.
[2020-06-13 16:57] VITALS: BP 97/69
--- NOTE | 2020-06-13 17:00 | NUR ---
IV ACCESS OBTAINED. ORTHOSTATICS PERFORMED AND DOCUMENTED. LAB AT BEDSIDE FOR BLOOD CULTURES
--- NOTE | 2020-06-13 17:18 | NUR ---
DR STAPLES AWARE OF NEED FOR RAPID FLU COLLECTION. PER DR. STAPLES, COVIA MEKA MITCHELL
[2020-06-13 17:22] LABS: EOS#(MANUAL) 0.11 x10^3/uL (0.0-0.4); EOS% (MANUAL) 6 % (1-7); LYMPH#(MANUAL) 0.47 x10^3/uL (1-3.4); LYMPHS% (MANUAL) 26 % (22-44); MONOS#(MANUAL) 0.14 x10^3/uL (0.3-2.7); MONOS% (MANUAL) 8 % (2-9); SEG#(MANUAL) 1.08 x10^3/uL (1.8-6.8); SEGS% (MANUAL) 60 % (42-75)
[2020-06-13 17:23] LABS: <PLATELET ESTIMATE> ADEQUATE; <PLT MORPHOLOGY> NORMAL PLT MORPH; ANISOCYTOSIS 1+; OVALOCYTES 2+
[2020-06-13] MEDS ORDERED: SODIUM CHLORIDE 0.9% 1,000ML IVBOLUS ONE (17:30)
--- NOTE | 2020-06-13 17:51 | NUR ---
PT RESTING ON GURNEY. CRYING STATING "MY BACK" STATES SHE HAS NAUSEA AND PAIN. WILL CONTINUE TO MONITOR
[2020-06-13] MEDS ORDERED: CYCLOBENZAPRINE 10 MG TABLET PO ONE (18:30)
[2020-06-13] MEDS ORDERED: ONDANSETRON ODT 4 MG PO ONE (18:30)
[2020-06-13] MEDS ORDERED: CYCLOBENZAPRINE 10 MG TABLET ONE (18:35)
[2020-06-13] MEDS ORDERED: ONDANSETRON ODT 4 MG ONE (18:35)
--- NOTE | 2020-06-13 18:58 | NUR ---
PT ANGRY, CRYING. STATING SHE WANTS TO BE DISCHARGED. RN IN ROOM TO ADMINISTERED ORDERED ORAL MEDICATIONS. PER PT THOSE MEDICATIONS DONT WORK FOR HER AND SHE IS REFUSING MEDICATIONS. STATES "THE ONLY THING THAT DOES IS MORPHINE OR DILAUDID". PT STATES SHE WANTS TO BE DISCHARGED. "YOU ARE DOING NOTHING FOR ME HERE". PT INFORMED ABOUT SIGNING AMA FORM. PER PT. "NO, THE DOCTOR CAN COME IN AND DISCHARGE ME". DR STAPLES MADE AWARE OF PATIENT CHOICE TO LEAVE.
--- NOTE | 2020-06-13 19:01 | NUR ---
REPORT GIVEN TO MARGARET LOFTON
--- NOTE | 2020-06-13 19:01 | NUR ---
IV REMOVED. ALL MONITORS DISCONNECTED PER PT REQUEST
--- NOTE | 2020-06-13 19:17 | NUR ---
lab called and inquired about ordered rapid flu swab. dr. smith relayed to me [id number] that we are cancelling this ordered swab. this was relayed back to lab personel on the phone. no further needs at this time patient resting in bed waiting for dc. in hand off from Kay LOFTON, i was notified that patient is very upset and is asking for dc as she did not get pain medications. she is currently a FLACC 0. ambulating in room independently and with steady gait. dr. smith writing up dc instructions at this time
--- NOTE | 2020-06-13 19:33 | NUR ---
discharge instructions reviewed with patient. in NAD but is agitated and frustrated, as she has voiced this to myself and MD in room, and is anxious to leave ER. patient in her street clothes and blanket around waist. DC VS not taken due to patient's agitation and irritability to leave. no further questions with dc instruction review. prescription handed directly to patient. i wore PAPR in room as well as gloves for this dc. patient had steady gait to lobby.
== END 2020-06-13 19:36 | disposition home or self-care (01) ==
LOC: ED 15:00
DX: R00.2 Palpitations (principal); Z20.822 Contact with and (suspected) exposure to COVID-19; D84.9 Immunodeficiency, unspecified; R42 Dizziness and giddiness; R79.9 Abnormal finding of blood chemistry, unspecified; R11.2 Nausea with vomiting, unspecified; R19.7 Diarrhea, unspecified; R07.89 Other chest pain; R53.1 Weakness; R50.9 Fever, unspecified; M54.5 Low back pain; R94.31 Abnormal electrocardiogram [ECG] [EKG]
CPT/HCPCS: 36415; 71045; 72110; 80048; 82040; 83605; 83880; 84145; 84484; 85025; 87040; 93005; 96360; 99285; J7030; U0003

== ENCOUNTER 2020-08-01 13:28 | Emergency (ER) | payer OTHER ==
[~2020-08-01] VITALS: Ht 172.7 cm; Wt 65.6 kg
--- NOTE | 2020-08-01 14:07 | NUR ---
PT BROUGHT BACK TO ROOM FROM TRIAGE. PT STATED THAT SHE HAD A LUMBAR PUNCTURE 2 DAYS AGO AND HAS SEVERE HEADACHE WHEN STANDING. PT ALSO STATES THAT SHE HAS A BURNING SENSATION IN HER NECK, BACK, ARMS AND LEGS. PT STATED THAT HEADACHE FEELS A LITTLE BETTER WHEN LAYING DOWN, BUT THE BURNING SENSATION DOES NOT SUBSIDE.
--- NOTE | 2020-08-01 14:37 | NUR ---
PT RESTING IN BED ON CELL PHONE. CALL LIGHT WITHIN REACH.
--- NOTE | 2020-08-01 15:10 | NUR ---
MED STUDENT AT BEDSIDE
[2020-08-01] MEDS ORDERED: PROMETHAZINE 25 MG/ML, 1ML IM ONE (15:30)
[2020-08-01] MEDS ORDERED: OXYcodone/APAP 5/325MG TABLET PO ONE (15:30)
[2020-08-01] MEDS ORDERED: OXYcodone/APAP 5/325MG TABLET ONE (15:36)
[2020-08-01] MEDS ORDERED: PROMETHAZINE 25 MG/ML, 1ML ONE ×2 (15:36→16:06)
--- NOTE | 2020-08-01 15:39 | NUR ---
ATTEMPTED TO GIVE MEDICATION PER MD ORDER, PT DENIES MEDICATIONS UNTIL SHE SEES ANESTHESIOLOGIST.
--- NOTE | 2020-08-01 15:49 | NUR ---
ANESTHESIA AT BEDSIDE
--- NOTE | 2020-08-01 16:28 | NUR ---
break yamile mcclelland at bedside, assistance provided for epidural blood patch.
[2020-08-01 16:29] VITALS: BP 103/63
[2020-08-01] MEDS ORDERED: MIDAZOLAM 1 MG/ML, 2ML ONE (16:38)
[2020-08-01] MEDS ORDERED: MIDAZOLAM 1 MG/ML, 5ML IVPush ONE (17:00)
--- NOTE | 2020-08-01 17:26 | NUR ---
PT WANTED TO LEAVE ED BEFORE DISCHARGE INSTRUCTIONS WERE AVAILABLE. PT UPSET THAT SHE WAS NOT ABLE TO RECEIVE IV NARCOTICS. IV TAKEN OUT. PER MD, PT IS CLEARED TO GO HOME. PT EDUCATED ABOUT DISCHARGE CARE. ALL QUESTIONS ANSWERED AT THIS TIME.
== END 2020-08-01 17:29 | disposition home or self-care (01) ==
LOC: ED 14:23
DX: G97.1 Other reaction to spinal and lumbar puncture (principal); M54.2 Cervicalgia; R50.9 Fever, unspecified; M54.5 Low back pain; R11.0 Nausea; F17.200 Nicotine dependence, unspecified, uncomplicated; Z90.49 Acquired absence of other specified parts of digestive tract; Z79.899 Other long term (current) drug therapy
CPT/HCPCS: 96372; 96374; 99284; J2250; J2550

== ENCOUNTER 2020-09-01 20:35 | Emergency (ER) | payer OTHER ==
[~2020-09-01] VITALS: Ht 172.7 cm; Wt 66.0 kg
[~2020-09-01 20:35] MED LIST changes: +SULF-23 PO; -SULF1TAB24 PO
[2020-09-01 20:49] VITALS: BP 99/54
--- NOTE | 2020-09-02 00:32 | NUR ---
PT NOT IN LOBBY WHEN CALLED FOR ROOM.
--- NOTE | 2020-09-02 00:54 | NUR ---
PT NOT IN LOBBY WHEN CALLED FOR ROOM.
== END 2020-09-02 00:56 | disposition left against medical advice (07) ==
LOC: ED 09-02
DX: R51.9 Headache, unspecified (principal); M25.561 Pain in right knee; M54.5 Low back pain
CPT/HCPCS: 99281

== ENCOUNTER 2020-09-10 18:23 | Emergency (ER) | payer OTHER ==
[~2020-09-10] VITALS: Ht 172.7 cm; Wt 65.0 kg
[2020-09-10 18:27] VITALS: BP 103/59
--- NOTE | 2020-09-10 18:27 | NUR ---
SEARCH ANALYST: EKG DONE AND GIVEN TO ERP.
[2020-09-10] MEDS ORDERED: LORazepam 1MG TABLET PO ONE (19:30)
[2020-09-10] MEDS ORDERED: LORazepam 1MG TABLET ONE (19:33)
--- NOTE | 2020-09-10 20:09 | NUR ---
Patient/Caregiver given discharge instructions and they have confirmed that they understand the instructions. Patient ambulatory with steady gait.
== END 2020-09-10 20:10 | disposition home or self-care (01) ==
LOC: ED 19:55
DX: F41.1 Generalized anxiety disorder (principal); R94.31 Abnormal electrocardiogram [ECG] [EKG]; Z21 Asymptomatic human immunodeficiency virus [HIV] infection status
CPT/HCPCS: 93005; 99283

== ENCOUNTER 2020-10-27 21:04 | Emergency (ER) | payer OTHER ==
[~2020-10-27] VITALS: Ht 172.7 cm; Wt 67.4 kg
[~2020-10-27 21:04] MED LIST changes: +CLOT45CR23 VG; -CLOT45CR5 VG
[2020-10-27 21:10] VITALS: BP 113/71
--- NOTE | 2020-10-27 21:14 | NUR ---
BIBA. PT C/O OF 5 SEIZURES TODAY AND PAIN ALL AROUND BODY. RPEORTS HAVING A AURA AND LAYS DOWN WHEN SIEZURE COMES ON. NO POST ICTAL STATE. PT STATES SHE TENSES UP AND BECOMES NON-VERBAL. DENIES LOC, HEAD INJURY, AND DOES NOT TAKE MEDS FOR SIEZURES. PT STATES BEGAN TO HAVE SIEZURES IN JUN WHEN HIT HEAD ON A ROCK PT A&0X4, BREATHING EVEN AND UNLABORED. NADN. SEIZURE PRECAUTIONS PUT INTO PLACE SUCTION, AMBU, AND SIEZURE PADS IMPLAMENTED FOR SAFETY. HX OF AIDS. ATTAXCHED TO MONITORS, VSS. EKD DONE AT BEDSIDE. MD AT BEDSIDE FOR EVAL. BED IN LOW POSITION, RAILS ENGAGED, CALL LIGHT ON LAP. WCTM
--- NOTE | 2020-10-27 21:23 | NUR ---
PT REFUSING TO PUT SOAKING PITS SUPERVISOR ON. STATES HER HEART IS FINE AND DOESNT NEED IT. PT IS ALSO REFUSING SERVICE TEAM LEADER TO WITHDRAWAL BLOOD. UNKNOWN REASON.
[2020-10-27] MEDS ORDERED: LORazepam 1MG TABLET PO ONE (21:30)
[2020-10-27] MEDS ORDERED: LORazepam 1MG TABLET ONE (21:30)
--- NOTE | 2020-10-27 21:32 | NUR ---
PT OFF UNIT IN IMAGING.
--- NOTE | 2020-10-27 22:23 | NUR ---
PT REFUSING LABS STILL AFTER RE-EDUCATION.
--- NOTE | 2020-10-27 22:24 | NUR ---
PT TOOK OFF ALL MONITORS AND REFUSING TO PUT THEM BACK ON FOR VITAL SIGN MONITORING. NADN. WCTM. BRETAHING EVEN AND UNLABORED.
--- NOTE | 2020-10-27 23:19 | NUR ---
Patient given discharge instructions and they have confirmed that they understand the instructions. Pt did not show any motivation to want to learn or listen to instructions but says they confirm. Patient ambulatory with steady gait. NAD, all questions answered appropriately, denies additional needs at this time. No personal belongings left in room after discharge. pt refused to have dc vital signs and left upset due to stating she didn't feel like the doctor did anything for her. Pt left with friend or bf juliano safe discharge.
== END 2020-10-27 23:24 | disposition home or self-care (01) ==
LOC: ED 23:18
DX: R56.9 Unspecified convulsions (principal); M54.5 Low back pain; Z72.9 Problem related to lifestyle, unspecified; R94.31 Abnormal electrocardiogram [ECG] [EKG]; G43.909 Migraine, unspecified, not intractable, without status migrainosus; G89.29 Other chronic pain; M19.90 Unspecified osteoarthritis, unspecified site; F17.210 Nicotine dependence, cigarettes, uncomplicated; Z85.42 Personal history of malignant neoplasm of other parts of uterus; Z90.49 Acquired absence of other specified parts of digestive tract; Z90.710 Acquired absence of both cervix and uterus; Z21 Asymptomatic human immunodeficiency virus [HIV] infection status
CPT/HCPCS: 70450; 93005; 99284; 99285

== ENCOUNTER 2020-11-12 18:42 | Emergency (ER) | payer OTHER ==
[~2020-11-12] VITALS: Ht 172.7 cm; Wt 64.1 kg
[2020-11-12 18:54] VITALS: BP 111/72
--- NOTE | 2020-11-12 22:56 | NUR ---
leg assembler note: No answer when called for room from lobby.
--- NOTE | 2020-11-12 23:08 | NUR ---
drivability technician note: No answer when called for room from lobby.
--- NOTE | 2020-11-12 23:25 | NUR ---
quarantine officer note: No answer when called for room from lobby.
== END 2020-11-12 23:27 | disposition left against medical advice (07) ==
LOC: ED 19:00
DX: Z76.0 Encounter for issue of repeat prescription (principal)
CPT/HCPCS: 99281

== ENCOUNTER 2020-11-14 20:51 | Emergency (ER) | payer OTHER ==
[~2020-11-14] VITALS: Ht 172.7 cm; Wt 64.4 kg
--- NOTE | 2020-11-14 20:55 | NUR ---
NOT IN LOBBY WHEN CALLED
[2020-11-14 21:03] VITALS: BP 102/69
--- NOTE | 2020-11-14 23:57 | NUR ---
CALLED IN THE LOBBY 3 TIMES.NO ANSWER.
== END 2020-11-14 23:59 | disposition left against medical advice (07) ==
LOC: ED 21:21
DX: G89.29 Other chronic pain (principal); M54.5 Low back pain
CPT/HCPCS: 99281

== ENCOUNTER 2020-12-14 12:42 | Emergency (ER) | payer SELFPAY ==
[~2020-12-14] VITALS: Ht 172.7 cm; Wt 65.5 kg
--- NOTE | 2020-12-14 14:20 | NUR ---
STONE CUTTER: PT TO ROOM FROM [facility]
[2020-12-14] MEDS ORDERED: LORazepam 1MG TABLET ONE (14:53)
[2020-12-14] MEDS ORDERED: LORazepam 1MG TABLET PO ONE (15:00)
[2020-12-14 15:23] VITALS: BP 107/67
--- NOTE | 2020-12-14 15:24 | NUR ---
PT HAS A RIDE HOME BY FAMILY.
== END 2020-12-14 15:26 | disposition home or self-care (01) ==
LOC: ED 13:50
DX: F41.1 Generalized anxiety disorder (principal); Z76.0 Encounter for issue of repeat prescription; F43.9 Reaction to severe stress, unspecified
CPT/HCPCS: 99283